=== PATIENT | male | born 1945 | race Caucasian/White ===

== ENCOUNTER → 2022-09-06 12:32 | Outpatient (BNVA) | payer MEDICARE, OTHER, SELFPAY | PROVIDERS: PCP Physician Assistant Medical; Visit Provider Dietitian, Registered | DX: R63.4 Abnormal weight loss (principal) | CPT/HCPCS: 97802 ==

== ENCOUNTER 2024-07-09 07:31 | Day surgery (SDC) | payer MEDICARE, OTHER, SELFPAY ==
[2024-07-04 12:25] VITALS: BMI 22.5
[2024-07-04 12:38] VITALS: BMI 22.5
--- NOTE | 2024-07-09 08:12 | HO.ANESPROP2 ---
HPI - Anesthesia Eval Consult details Narrative: cataract extraction PMF Active Problems Active Problems: All Active Problems Unintentional weight loss (Acute) Past Medical History Medical History Thyrotoxicosis Atrial fibrillation Asthma Cardiomyopathy Secondary malignant neoplasm of femoral lymph nodes Hx of malignant melanoma of skin Central sleep apnea Sick sinus syndrome Mitral valve regurgitation Hyperlipidemia Sensorineural hearing loss, bilateral Chronic rhinitis Benign essential HTN Cataracts, bilateral Family History Family history of problems with anesthesia: No Surgical History Surgical History Hx of colonoscopy History of Problems with Anesthesia: No Social History Social History Household Members: Spouse Housing: House Are you a primary career placement specialist to a significant other at home: No Do you presently have visiting nurse or other home services: No Patient Tobacco Use Status: Former Tobacco user Tobacco use type: Cigarette Smoked in Last 30 Days: No Use of substances other than those prescribed or required for medical reasons: No Are you DNR?: No Advance Directives: No Advance Directives Information Provided: Yes Advance Directives on File: No Recently lost weight without trying: No Poor oral hygiene: No Meds Allergies Allergy/AdvReac Type Severity Reaction Status Date / Time levofloxacin Allergy Unknown Verified 07/04/24 12:24 Active Medications: Current Medications Lactated Ringer's (Lr) 500 mls @ 20 mls/hr IVCONT .Q24H LONI Moxifloxacin HCl (Moxifloxacin Hcl 0.5 % Oph Sophie 3 Ml Drpbtl) 1 drop EYE-LEFT POSTOP ONE Stop: 07/09/24 07:59 Povidone Iodine (Povidone Iodine 5 % Ophth Soln 30 Ml Bottle) 1 appl EYE-LEFT PREOP PRN PRN Reason: Pre-Op Surgical Implant Prophy Home Medications ?Medication ?Instructions ?Recorded ?Confirmed ?Last Taken ?Type albuterol sulfate 90 mcg/actuation 2 puff inhalation Q6H PRN 07/04/24 07/04/24 Unknown History aerosol inhaler Shortness Of Breath Or Wheezing apixaban 5 mg tablet (Eliquis) 5 mg PO BID 07/04/24 07/04/24 Unknown History budesonide 180 mcg/actuation 2 inh inhalation BID 07/04/24 07/04/24 Unknown History breath activated powder inhaler (Pulmicort Flexhaler) cholecalciferol (vitamin D3) 50 50 mcg PO DAILY 07/04/24 07/04/24 Unknown History mcg (2,000 unit) capsule (Vitamin D3) fluticasone propionate 50 2 spray intranasal DAILY 07/04/24 07/04/24 Unknown History mcg/actuation nasal spray,suspension lisinopril 20 mg tablet 20 mg PO DAILY 07/04/24 07/04/24 Unknown History multivit,calc,mins-folic 240 1 tab PO DAILY 07/04/24 07/04/24 Unknown History mcg-vit K1 30 mcg-lycopene 300 mcg tablet (One-A-Day Men's Complete) Exam Height,Weight and Vital Signs: Height 6 ft 1 in Weight 77.2 kg Airway Mallampati Class: II TM Dist: >3cm Neck ROM: Limited Heart: rrr Lungs: cta Assessment and Plan Assessment Anesthesia Assessment: Anesthesia Plan Discussed Final Anesthetic Review Family History of Problems with Anesthesia: No History of Problems with Anesthesia: No NPO: Yes ASA Class: III Final Preanesthetic Review: No Changes in Pt Med Stat, Meds/Allgs Chart Reviewed, Consent Obtained/Reviewed and Anes Risks/Benef Reviewed Patient Risk: Intermediate Procedure Risk: Low Anesthetic Plan Anesthetic Plan: MAC: Disposition: Standard PACU
[2024-07-09 08:15] VITALS: BP 125/71; PULSE 37; RESP 18; TEMP 36.9; O2SAT 98
[2024-07-09] MEDS: Lactated Ringers 500 ML 20 ML IVCONT (08:22)
[2024-07-09] MEDS: Ketorolac Tromethamine 0.5% Op 5 ML DROPS 1 DROP EYE-LEFT ×3 (08:24→08:25)
[2024-07-09] MEDS: Tropicamide 1 % Ophth Sol 3 ML BTL 1 DROP EYE-LEFT ×3 (08:24→08:25)
[2024-07-09] MEDS: Phenylephrine HCL 2.5% Oph SoL 2 ML BOTTLE 1 DROP EYE-LEFT ×3 (08:24→08:25)
[2024-07-09] MEDS: Cyclopentolate 1 % Ophth Sol 2 ML DRPBTL 1 DROP EYE-LEFT ×3 (08:24→08:25)
[2024-07-09] MEDS: Tetracaine HCl/PF 0.5% Oph Sol 4 ML DROPS 1 DROP EYE-LEFT (08:26)
--- NOTE | 2024-07-09 08:41 | PC.NURSE ---
anesthesia aware pts pulse runs 30-40s no s/sx loww pulse pwd
--- NOTE | 2024-07-09 09:00 | MHC.SHP ---
Pre-Procedural Eval Section A - 24 Hr Update-Section A only Date of Service: 07/09/24 The patient is an INPATIENT: No Changes since office visit: No Cold of Flu in the past 2 weeks, No New Medical Problems, No Changes in Medication and No Patient answered all questions The patient has been examined within 24 hours of the surgical procedure. The History & Physical has been completed within 30 days and I have reviewed it.: Yes Section B - Complete if H&P > 30 days Chief Complaint: Age-related nuclear cataract, left eye Allergies: Allergies Allergy/AdvReac Type Severity Reaction Status Date / Time levofloxacin Allergy Unknown Verified 07/04/24 12:24 Plan Diagnosis/Plan: Unchanged I have reviewed the history and physical and performed a pertinent physical examination on my patient. No changes have occurred unless specified. Time Spent With Patient Time: Total time managing care of this patient today ____ minutes.
--- NOTE | 2024-07-09 09:01 | HO.PNOPHT ---
Ophthalmology Procedure Procedure Date of Service: 07/09/24 Ophthalmology Viscoelastic: Healon Duet Dual Pack Pro Ophthalmology Lenses: IOL Acrysof MP - [id number] (20) Procedure Notes: PREOPERATIVE DIAGNOSIS: Decreased visual acuity left eye secondary to cataract POSTOPERATIVE DIAGNOSIS: Same PROCEDURE: Left cataract extraction with intraocular lens insertion SURGEON: Anuj Lopez M.D. ANESTHESIA: Topical/MAC ESTIMATED BLOOD LOSS: None COMPLICATIONS: None After obtaining informed consent, the patient was brought to the operation room suite and placed in the supine position. After adequate sedation per anesthesia, topical drops of Tetracaine were given to the left eye. The eye was then prepped and draped in the usual sterile fashion. The operating room microscope was then positioned over the operative eye and a lid speculum placed. A paracentesis was created. Viscoelastic was then instilled into the anterior chamber. A three plane incision was then created temporally, utilizing a 2.85 mm keratome. Capsulotomy forceps were then utilized to create a circular tear capsulotomy. Hydrodissection and hydrodelineation were carried out until adequate mobilization of the nucleus occurred. Phacoemulsification was then utilized to remove the dense central nucleus followed by removal of the cortical material utilizing the automated aspiration irrigation unit. Viscoat elastic was instilled into the posterior capsular bag followed by placement of a posterior chamber intraocular lens without difficulty. The residual Viscoat elastic was then removed utilizing the automated IA machine. The wound was check and found to be watertight. The patient tolerated the procedure well and the lid speculum was removed. Intracameral injection of Vigamox 0.1 mL followed by a subtenon injection of Kenalog-40 0.2 mL were administered. The patient will be seen in the a.m.
[2024-07-09 09:24] VITALS: BP 109/52; PULSE 40; RESP 16; TEMP 36.8; O2SAT 98
== END 2024-07-09 09:39 | disposition home or self-care (01) ==
PROVIDERS: PCP Physician Assistant Medical; Visit Provider Ophthalmology
PROC: (CPT 66985; principal; 2024-07-09 09:30)
DX: H25.12 Age-related nuclear cataract, left eye (principal); H52.4 Presbyopia; H35.443 Age-related reticular degeneration of retina, bilateral; H18.413 Arcus senilis, bilateral; J45.909 Unspecified asthma, uncomplicated; I48.91 Unspecified atrial fibrillation; I10 Essential (primary) hypertension; I42.9 Cardiomyopathy, unspecified; E78.5 Hyperlipidemia, unspecified; G47.31 Primary central sleep apnea; Z85.820 Personal history of malignant melanoma of skin; Z79.51 Long term (current) use of inhaled steroids; Z79.01 Long term (current) use of anticoagulants; Z79.899 Other long term (current) drug therapy; Z88.8 Allergy status to other drugs, medicaments and biological substances; Z87.891 Personal history of nicotine dependence
CPT/HCPCS: 66984; J2250; J3301; V2630

== ENCOUNTER 2024-07-23 06:16 | Day surgery (SDC) | payer MEDICARE, OTHER, SELFPAY ==
[2024-07-04 12:42] VITALS: BMI 22.5
--- OUTSIDE RECORDS SUMMARY | 2024-07-11 17:47 | XMS_ITS ---
Author Organization [facility] Address [address] [place] [address] Phone Care Team Providers Care Division Toll Wire Chief Name Role Phone Fernando Lees Primary Care Provider [phone] Active Problems Problem Noted Date Diagnosed Date Benign essential hypertension 04/05/2024 Chronic rhinitis 04/05/2024 Sensorineural hearing loss, bilateral 04/05/2024 Hyperlipidemia 11/25/2020 Overview (03/01/2024): Hyperlipidemia Mitral valve regurgitation 11/25/2020 Overview (03/01/2024): Mitral valve regurgitation Sick sinus syndrome 11/25/2020 Overview (03/01/2024): Sick sinus syndrome Central sleep apnea with Usman-Burton respirati on 10/04/2018 Overview (03/01/2024): [facility] Home Sleep Apnea Test: Date 09/25/2018; Wt 175#; BMI 23; KELLEY 14, AI 6; HI 9; Unclassified apneas 0; Obstructive apneas 23; Central apneas 5; Mixed apneas 2; hypopneas 45; average oxygen saturation 94% (lowest 88% without saturations <88% for 5% or more of study) [facility] Polysomnogram treatment study. Date 11/04/2018. Wt 179#; BMI 24; SE 54 % SM 56 %; spent 11 % of the study in REM. On CPAP @ 12; RDI 0 (AHI 0), Central apneas 0; Obstructive apneas 0; Mixed apneas 0; hypopneas 0; RERAs 0; and, average oxygen saturation was 95%. For the entire study, PLMs ~14. - Complex Sleep Apnea with Central Apneas and Usman Burton Breathing- mild; mostly hypopneas, obstructive apneas and central apneas; without sleep related hypoventilation by 2019 home polysomnogram. - 11/04/2018 Pre-study ESS 4. 1/4 RLS symptoms. Last Assessment & Plan: Continue with the use of CPAP as indicated. Patient has excellent compliance. He feels great. Patient also has obstructive and central sleep apnea. Return to clinic in 1 year ?? - Complex Sleep Apnea with Central Apneas and Usman Burton Breathing- mild; mostly hypopneas, obstructive apneas and central apneas; without sleep related hypoventilation by 2019 home polysomnogram. - 11/04/2018 Pre-study ESS 4. 1/4 RLS symptoms. - 03/2018 Echo EF 40% - Afib by his report in the past. + cardiomyopathy with EF 40%. Malignant melanoma of skin of trunk 02/05/2016 Secondary malignant neoplasm of femoral lymph no richelle 02/05/2016 Allergy 06/05/2010 Cardiomyopathy 02/06/2009 Overview (03/01/2024): Mild left ventricular dysfunction by echocardiogram. Frequent PVCs and chronic atrial fibrillation. Very active with no limiting symptoms. Followed by Dr. Kahn Last Assessment & Plan: Dilated nonischemic cardiomyopathy of unclear etiology. LVEF has been stable in the past and is showing no signs or symptoms of heart failure. I will get an echocardiogram to see if he requires guideline directed medical therapy. If his LVEF is above 40% with a lack of symptoms and clinical stability then I will continue with minimal pharmacologic treatment. If his LVEF is 40 or below I will talk to him about starting afterload reduction. He would not be a candidate for beta-janes due to his rhythm. Asthma 01/26/2006 Geniculate herpes zoster 01/26/2006 Atrial fibrillation 01/04/2006 Overview (03/01/2024): Longstanding persistent atrial fibrillation. Continue with apixaban. Discussed alternatives given he has some mild he has a high vagal tone and has not needed rate slowing medications. He denies any symptoms. He is tolerating Eliquis without bleeding. He has normal baseline renal function. Last Assessment & Plan: This gentleman has a bradycardic response to atrial fibrillation but is asymptomatic and exercising fairly vigorously without difficulty. 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 If his LVEF is reduced I would consider a left bundle pacemaker or defibrillator depending on the LVEF. He will continue to avoid any rate slowing medications and continue his healthy lifestyle. We will continue Eliquis for stroke prevention. I did discuss left atrial appendage closure with him but he is doing reasonably well on the Eliquis Thyrotoxicosis 01/04/2006 Current Oncology Plans No current plan information found. Past Plans No past plan information found. Radiation Treatments * No radiation treatments are documented for this patient in [facility]. Treatments may have been administered in another system. Lifetime Dose Tracking * Chemical Lifetime Dose Automatic Entry Manual Entr y Fluoro Time 1 minutes 1 minutes 0 minutes Air Kerma 3.8 mGy 3.8 mGy 0 mGy CTDIvol 10.35 mGy 10.35 mGy 0 mGy Dose Area Product 0.5 mGy-cm2 0.5 mGy-cm2 0 mGy-cm2
--- OUTSIDE RECORDS SUMMARY | 2024-07-11 17:48 | XMS_ITS | Encounter Summary ---
Author Organization [employer] Address [address] [place] [address] Care Team Providers Care Repairer Shoe Sticks Name Role Phone Fernando Lees Primary Care Provider [phone] Reason for Visit * Reason Comments Pre-op Exam Encounter Details Date Type Department Care Team (Late st Contact Info) Description 07/02/2024 10:00 AM EST Consult Adult Medicine [facility] [address] [place] [phone] Fernando Lees PA [address], [place] [id number] Pre-op exam (Primary Dx); Atrial fibrillation, unspecified type (CMS/HCC); Cardiomyopathy, unspecified type (CMS/HCC); Hyperlipidemia, unspecified hyperlipidemia type; Mitral valve insufficiency, unspecified etiology Social History Tobacco Use Types Packs/Day Years Used Date Smoking Tobacco: Former Cigarettes Q uit: 12/14/1965 Smokeless Tobacco: Never Tobacco Cessation:Counseling Given: Not Answered Alcohol Use Standard Drinks/Week Comments Yes 0 (1 standard drink = 0.6 oz pur e alcohol) Housing Instability Answer Date Recorde d Are you worried that in the next 2 months you may not have stable housing? No 04/13/2024 Food Access & Nutrition Answer Date Rec orded Do you have access to a vari ety of food including fruits and vegetables? Yes 04/13/2024 Access to Healthcare Answer Date Record ed Within the last 3 months, ho w many times did you visit the emergency department for your medical care? 0 04/13/2024 Health Literacy Answer Date Recorded How often do you need to hav e someone help you when you read instructions, pamphlets, or other written material from your doctor or pharmacy? Never 04/13/2024 Caregiver: How often do you need to have someone help you when you read instructions, pamphlets, or other written material from your doctor or pharmacy? Not on file 04/13/2024 Financial Risk Answer Date Recorded How hard is it for you to pa y for the very basics like food, housing, medical care, and air conditioning / heating? Not very hard 04/13/2024 Transportation Answer Date Recorded Has the lack of transportati on kept you from meetings, work, or from getting things needed for daily living? No Has the lack of transportati on kept you from medical appointments or from getting medications? No 04/13/2024 Social Isolation Answer Date Recorded How often do you feel lonely or isolated from th ose around you? Never 04/13/2024 Food Risk Answer Date Recorded Within the past 12 months we worried whether our food would run out before we got money to buy more. Never true 04/13/2024 Within the past 12 months th e food we bought just didn't last and we didn't have money to get more. Never true 04/13/2024 Dependent Care Answer Date Recorded Do you need help finding or paying for care for your loved ones. For example, early childhood or elderly care for an older adult? No 04/13/2024 Education Answer Date Recorded Do you think completing more education or training, like finishing a GED, going to college, or learning a trade, would be helpful for you? No 04/13/2024 Employment and Income Answer Date Recor ded During the last four weeks, have you been actively looking for work? No 04/13/2024 Living Situation Answer Date Recorded What is your living situation? 1 06/13/2023 Sex and Gender Information Value Date Recorded Sex Assigned at Not on file Legal Sex Male 6:24 AM EST Gender Identity Not on file Sexual Orientation Not on file documented as of this encounter Last Filed Vital Signs Vital Sign Reading Time Taken Comments Blood Pressure 90/60 07/02/2024 10:01 AM EST Pulse 40 07/02/2024 10:01 AM EST provider will be recheck Temperature 36.4 ??C (97.5 ??F) 07/02/2024 1 0:01 AM EST Respiratory Rate 18 07/02/2024 10:0 1 AM EST Oxygen Saturation 98% 07/02/2024 10: 01 AM EST Inhaled Oxygen Concentration - - Weight 77.2 kg (170 lb 3.2 oz) 07/02/2024 10:01 AM EST Height 185.4 cm (6' 1 ) 07/02/2024 10:0 1 AM EST Body Mass Index 22.46 07/02/2024 10:01 AM EST documented in this encounter Progress Notes * Fernando Lees, DANIELLE - 07/02/2024 10:00 AM EST Referring MD: Anuj Lopez MD HPI: Mr. Larsen is a 78 y.o. year old male who is scheduled for bilateral cataract surgery has the leftside scheduled for 07/09/2024 and the right scheduled for 07/23/2024. He is here today for pre-operative consultation. His functional status is greater than 4 METs as he can walk up 2 flights of stairs. He exercises regularly. He has not had problems with anesthesia or bleeding. ROS: GENERAL: Negative for malaise, significant weight loss and fever RESPIRATORY: No cough, wheezing or shortness of breath CARDIOVASCULAR: Negative for chest pain, leg swelling and palpitations ENDOCRINE: Negative for cold or heat intolerance, polyuria, polydipsia and goiter NEURO: No persistent headache, fainting, seizures, strokes, TIAs, weakness, numbness or tingling PAST MEDICAL HISTORY: Patient Active Problem List Diagnosis Date Noted Benign essential hypertension 04/05/2024 Chronic rhinitis 04/05/2024 Sensorineural hearing loss, bilateral 04/05/2024 Hyperlipidemia 11/25/2020 Mitral valve regurgitation 11/25/2020 Sick sinus syndrome (CMS/HCC) 11/25/2020 Central sleep apnea with Usman-Burton respiration 10/04/2018 Malignant melanoma of skin of trunk (CMS/HCC) 02/05/2016 Secondary malignant neoplasm of femoral lymph nodes [place] 02/05/2016 Allergy 06/05/2010 Cardiomyopathy ([facility]) 02/06/2009 Asthma 01/26/2006 Geniculate herpes zoster 01/26/2006 Atrial fibrillation ([facility]) 01/04/2006 Thyrotoxicosis 01/04/2006 SOCIAL HISTORY: Social History Tobacco Use Smoking status: Former Current packs/day: 0.00 Types: Cigarettes Quit date: 12/14/1965 Years since quittin.5 Smokeless tobacco: Never Substance Use Topics Alcohol use: Yes FAMILY HISTORY: Family Status Relation Name Status Mother at age 87 congestive heart failure Uncle Father arthritis Brother suicide No partnership data on file Family History Problem Relation Name Age of Onset Heart failure Mother Colon cancer Uncle 65.00 ACTIVE MEDICATIONS: Outpatient Medications Marked as Taking for the 07/02/24 encounter (Consult) with DANIELLE Ferreira Medication Sig Dispense Refill albuterol HFA (PROAIR HFA ; PROVENTIL HFA ; VENTOLIN HFA) 90 mcg/actuation inhaler Inhale 2 puffs by mouth every 6 (six) hours if needed for wheezing or shortness of breath. 3 each 3 apixaban (Eliquis) 5 mg tablet TAKE 1 TABLET BY MOUTH TWICE DAILY 180 tablet 3 budesonide (Pulmicort Flexhaler) 180 mcg/actuation inhaler Inhale 1 puff by mouth 2 (two) times a day. Rinse mouth with water after use to reduce aftertaste and incidence of candidiasis. Do not swallow. 1 each 12 cholecalciferol (VITAMIN D-3) 50 mcg (2,000 unit) capsule Take 1 capsule (2,000 Units total) by mouth 1 (one) time each day. fluticasone propionate (FLONASE) 50 mcg/actuation nasal spray 2 sprays in each nostril once per dayfor 2 weeks. lisinopriL (PRINIVIL,ZESTRIL) 20 mg tablet Take 1 tablet (20 mg total) by mouth 1 (one) time each day. 90 tablet 1 multivit-minerals/FA/lycopene (ONE-A-DAY MEN'S 50 PLUS ORAL) 1 tab qd UNABLE TO FIND CPAP Historical (HISTORICAL CPAP) ALLERGIES: Levofloxacin PHYSICAL EXAM: Blood pressure 90/60, pulse (!) 40, temperature 36.4 ??C (97.5 ??F), temperature source Temporal, resp. rate 18, height 1.854 m (73 ), weight 77.2 kg (170 lb 3.2 oz), SpO2 98%. Body mass index is 22.46 kg/m??. APPEARANCE: Alert and in no acute distress HEART: Sinus bradycardia with normal S1 and S2, no murmurs, no gallops, no JVD appreciated LUNG: clear to auscultation bilaterally EXTREMITIES: Extremities warm and well perfused without clubbing, cyanosis, or edema NEURO: Awake, alert and oriented x 3 and reflexes symmetrical LABS: No results found for: WBC , HGB , HCT , MCV No results found for: NA , K , CO2 , CL , BUN , GLU No results found for: INR , PTT Testing:acceptable EKG: Atrial fibrillation rate around 40 no ischemic changes . ASSESSMENT AND PLAN: 1. Pre-op exam 2. Atrial fibrillation, unspecified type (CMS/HCC) 3. Cardiomyopathy, unspecified type (CMS/HCC) 4. Hyperlipidemia, unspecified hyperlipidemia type 5. Mitral valve insufficiency, unspecified etiology Cardiac - Mr. Larsen clinical risk factors include atrial fibrillation, cardiomyopathy and male isscheduled for a low risk procedure. His functional capacity is estimated to be greater than 4 METs.He is, therefore, estimated to have an acceptablerisk for the proposed procedure. Further cardiac workup is not warranted. Beta blockade perioperatively is not needed. Patient does have a relatively low heart rate which is chronic. It does not seem to be symptomatic at all. He has monitored by cardiology. Overall he is very stable from a cardiovascular perspective Pulmonary - His pulmonary risk factors include age > 50. Early ambulation and use of incentive spirometry, when appropriate, are encouraged. Medications -patient may continue his medications perioperatively with a small sip of water. He checked in with cardiology and they feel that he may continue the Eliquis perioperatively and I agree with this sentiment as the risk for bleeding is very low. Please do not hesitate to contact me with any questions or concerns. Thank you for the courtesy of this consultation. DANIELLE Mccann on 07/02/2024 at 10:29 AM EST cc: Anuj Lopez MD documented in this encounter Plan of Treatment Upcoming Encounters Date Type Department Care Team (Late st Contact Info) Description 07/18/2024 2:15 PM EST Office Visit [address] [phone] Veronica Romero MD [address] [place] [address] 08/08/2024 12:30 PM EDT Ancillary Procedure Pulmonolgy - [place] [address] [phone] MaxwellFatmata galindonasima 08/08/2024 1:30 PM EDT [facility] [address] [phone] Norma Santa MD [address] [address] 10/22/2024 12:45 PM EDT Office Visit Adult Medicine [facility] [address] [place] [address] Fernando Lees PA [address] [place] [address] documented as of this encounter Procedures Procedure Name Priority Date/Time Associated Diagnosis Comments ECG 12-LEAD TRACING ONLY Routine 07/02/2024 10:36 AM EST Pre-op exam documented in this encounter Results * ECG 12 lead Tracing Only (07/02/2024 10:36 AM EST) Fernando SANTOS ECG ORDERABLES Final Res ult documented in this encounter Visit Diagnoses Diagnosis Pre-op exam- Primary Atrial fibrillation, unspecified type (CMS/HCC) Cardiomyopathy, unspecified type (CMS/HCC) Hyperlipidemia, unspecified hyperlipidemia type Mitral valve insufficiency, unspecified etiology documented in this encounter Additional Health Concerns Assessment Noted Time PHQ-9 Depression Total Score: 0 04/13/20 24 11:23 PM EST documented as of this encounter Care Teams Repairer Shoe Sticks Relationship Specialty Start Date End Date Fernando Lees PA [address] [place] [address] PCP - General Internal Medicine 09/10/20 documented as of this encounter
--- OUTSIDE RECORDS SUMMARY | 2024-07-11 17:48 | XMS_ITS | Continuity of Care Document ---
Author Name [facility] Organization [facility] Care Team Providers Care Bill Sorter Name Role Phone 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 It does not include entries that were removed or entered in error. 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 Medication Details Route Status Patient Instructions Prescription Expires Prescription Number Last Dispense Date Ordering Provider Order Date Order Qty Source AMOXICILLIN (AMOXICILLI N), 500 MG, TABLET, ORAL, [facility], 100 ea. BOTTLE Active [id number] 2023 28 Pharmac y Data Transac tion Service Facilit y AMOXICILLIN (AMOXICILLI N), 500 MG, TABLET, ORAL, [facility], 100 ea. BOTTLE Active [id number] 2023 28 Pharmac y Data Transac tion Service Facilit y ELIQUIS (APIXABAN), 5 MG, TABLET, ORAL, [facility] , 60 ea. BOTTLE Active [id number] 2023 180 Pharmac y Data Transac tion Service Facilit y ELIQUIS (APIXABAN), 5 MG, TABLET, ORAL, [facility] , 60 ea. BOTTLE Active [id number] 4 2023 180 Pharmac y Data Transac tion Service Facilit y IBUPROFEN (ibuprofen) , 800 MG, TABLET, ORAL, AUROB[facility]ARM, 500 ea. BOTTLE Active [id number] 2023 21 Pharmac y Data Transac tion Service Facilit y PULMICORT FLEXHALER (BUDESONIDE ), 180MCG, AER POW BA, INHALATION, ASTRAZENECA , 1 ea. CANISTER Active [id number] 2022 3 Pharmac y Data Transac tion Service Facilit y PULMICORT FLEXHALER (BUDESONIDE ), 180MCG, AER POW BA, INHALATION, ASTRAZENECA , 1 ea. CANISTER Active [id number] 4 2023 3 Pharmac y Data Transac tion Service Facilit y SULFAMETHOX AZOLE-TRIME THOPRIM (SULFAMETHO XAZOLE/TRIM ETHOPRIM), 800-160MG, TABLET, ORAL, AUROBINDO PHARM, 500 ea. BOTTLE Active [id number] 2023 28 Pharmac y Data Transac tion Service Facilit y Allergies, Adverse Reactions, Alerts Combined list of allergies from Department of Defense and Veterans Affairs facilities. It does not include entries that were removed or entered in error. Substance Category Reaction Severity Reaction type Status Date Reported Comments Source No Known Allergies Drug allergy (disorder) active 04/20/2012 [facility] Immunizations Combined list of available immunizations from the Department of Defense and Veterans Affairs facilities. Immunization Series Date Given Administered By Site Reaction Lot Number CVX Code Drug Line Walker Status Comments Source influenza virus vaccine, whole virus 1 2002 Unknown, Provider [id number] [facility] ([facility]) complet ed influenza virus vaccine, whole virus [facility] influenza virus vaccine, whole virus 1 2001 Unknown, Provider [id number] Felix ([facility]) complet ed influenza virus vaccine, whole virus [facility] typhoid Vi capsular polysaccharid e vaccine 1 2001 Unknown, Provider [id number] Sanofi Pasteur ([facility]) complet ed typhoid Vi capsular polysacch aride vaccine DoD yellow fever vaccine 1 2000 Unknown, Provider [id number] Sanofi Pasteur ([facility]) complet ed yellow fever vaccine DoD influenza virus vaccine, whole virus 1 2000 Unknown, Provider [id number] Sanofi Pasteur ([facility]) complet ed influenza virus vaccine, whole virus [facility] tuberculin skin test; purified protein derivative solution, intradermal 1 2000 Unknown, Provider [id number] Sanofi Pasteur ([facility]) complet ed tuberculi n skin test; purified protein derivativ e solution, intraderm al DoD tuberculin skin test; purified protein derivative solution, intradermal 1 1999 Unknown, Provider [id number] Sammy ([facility]) complet ed tuberculi n skin test; purified protein derivativ e solution, intraderm al DoD tuberculin skin test; purified protein derivative solution, intradermal 1 1999 Unknown, Provider 96 () complet ed tuberculi n skin test; purified protein derivativ e solution, intraderm al DoD anthrax vaccine 3 1999 Unknown, Provider [address] [facility] [employer] [place] ([facility]) complet ed anthrax vaccine DoD anthrax vaccine 2 1999 Unknown, Provider [id number] [facility] [employer] [place] ([facility]) complet ed anthrax vaccine DoD anthrax vaccine 1 1999 Unknown, Provider [id number] [facility] [facility] [place] ([facility]) complet ed anthrax vaccine DoD hepatitis A vaccine, adult dosage 2 1999 Unknown, Provider 52 () complet ed hepatitis A vaccine, adult dosage DoD meningococcal polysaccharid e vaccine (MPSV4) 1 1999 Unknown, Provider 32 () complet ed meningoco ccal polysacch aride vaccine (MPSV4) DoD tuberculin skin test; purified protein derivative solution, intradermal 1 1999 Unknown, Provider [id number] Sammy ([facility]) complet ed tuberculi n skin test; purified protein derivativ e solution, intraderm al DoD tetanus and diphtheria toxoids, adsorbed, preservative free, for adult use (2 Lf of tetanus toxoid and 2 Lf of diphtheria toxoid) 1 1999 Unknown, Provider 09 () complet ed tetanus and diphtheri a toxoids, adsorbed, preservat gifty free, for adult use (2 Lf of tetanus toxoid and 2 Lf of diphtheri a toxoid) DoD typhoid vaccine, parenteral, other than acetone-kille d, dried 1 1998 Unknown, Provider 41 () complet ed typhoid vaccine, parentera l, other than acetone-k illed, dried DoD influenza virus vaccine, whole virus 1 1998 Unknown, Provider [id number] Felix ([facility]) complet ed influenza virus vaccine, whole virus [facility] hepatitis A vaccine, adult dosage 1 1998 Unknown, Provider [id number] Merck ([facility]) complet ed hepatitis A vaccine, adult dosage DoD influenza virus vaccine, whole virus 2 1997 Unknown, Provider [id number] Sanofi Pasteur ([facility]) complet ed influenza virus vaccine, whole virus DoD influenza virus vaccine, whole virus 1 1996 Unknown, Provider 16 () complet ed influenza virus vaccine, whole virus [facility] typhoid vaccine, parenteral, acetone-kille d, dried ([place] ) 2 1995 Unknown, Provider 53 () complet ed typhoid vaccine, parentera l, acetone-k illed, dried ([place] ) DoD yellow fever vaccine 1 1989 Unknown, Provider 37 () complet ed yellow fever vaccine [facility] trivalent poliovirus vaccine, live, oral 1 1989 Unknown, Provider 02 () complet ed trivalent polioviru s vaccine, live, oral [facility] tetanus and diphtheria toxoids, adsorbed, preservative free, for adult use (2 Lf of tetanus toxoid and 2 Lf of diphtheria toxoid) 1 1988 Unknown, Provider 09 () complet ed tetanus and diphtheri a toxoids, adsorbed, preservat gifty free, for adult use (2 Lf of tetanus toxoid and 2 Lf of diphtheri a toxoid) [facility] trivalent poliovirus vaccine, live, oral 1 1963 Unknown, Provider 02 () complet ed trivalent polioviru s vaccine, live, oral [facility]D Encounters Combined list of: 1) Encounters from Department of Veterans Affairs facilities going backup to the last 18 months, not all [facility] inpatient encounters are included; 2) Encounters from the Department of Defense facilities going backup to 280 months. Location Location Details Encounter Type Encounter Number Reason For Visit Attending Provider ADM Date DC Date Status Disposition Source [facility](NI Fam Med PCM Tm 1) OUTPATIENT [id number] COLD LIKE SYMPTOM S/SORE THROAT/ HOARSE VOICE ALTHEA OSBORNE 04/18 Released w/o Limitations [facility](N I Fam Med PCM Tm 1) [facility] F[facility] Med [facility] Tm 1) OUTPATIENT [id number] f/u for lab result ALTHEA OSBORNE 04/20 Released w/o Limitations [facility](N I Fam Med [facility] Tm 1) [facility] HEARING AID FITTING/CH ECKING [id number] Diagnos is: ICD-10- CM Z46.1 Encount er for fitting and adjustm ent of hearing aid [facility]IOR[facility]O 10/26 [facility] Social History Combined list of available smoking, tobacco, and other social history from Department of Defense and Veterans Affairs facilities. Social History Type Response Date Comment [facility] e This section is an empty social history section. DoD
--- OUTSIDE RECORDS SUMMARY | 2024-07-11 17:48 | XMS_ITS | Clinical Summary ---
Author Organization [facility] Address [address] [place] [address] Phone Care Team Providers Care Assortment Planner Name Role Phone Fernando Lees Primary Care Provider [phone] Allergies Active Allergy Reactions Criticality Noted Date Comments Levofloxacin 07/13/2023 Medications cholecalciferol (VITAMIN D-3) 50 mcg (2,000 unit) capsule Take 1 capsule (2,000 Units total) by mouth 1 (one) time each day. Active fluticasone propionate (FLONASE) 50 mcg/actuation nasal spray 2 sprays in each nostril once per day for 2 weeks. 10/07/19 22 Active UNABLE TO FIND CPAP Historical (HISTORICAL CPAP) 10/07/19 22 Active budesonide (Pulmicort Flexhaler) 180 mcg/actuation inhaler INHALE 2 PUFFS BY MOUTH INTO THE LUNGS TWICE DAILY 08/22/19 21 Active multivit-minera ls/FA/lycopene (ONE-A-DAY MEN'S 50 PLUS ORAL) 1 tab qd Active budesonide (Pulmicort Flexhaler) 180 mcg/actuation inhalerIndicati ons:Moderate persistent asthma, unspecified whether complicated Inhale 1 puff by mouth 2 (two) times a day. Rinse mouth with water after use to reduce aftertaste and incidence of candidiasis. Do not swallow. 1 each 12 04/05/20 24 025 Active albuterol HFA (PROAIR HFA ; PROVENTIL HFA ; VENTOLIN HFA) 90 mcg/actuation inhalerIndicati ons:Moderate persistent asthma, unspecified whether complicated Inhale 2 puffs by mouth every 6 (six) hours if needed for wheezing or shortness of breath. 3 each 3 04/05/20 24 025 Active lisinopriL (PRINIVIL,ZESTR IL) 20 mg tablet Take 1 tablet (20 mg total) by mouth 1 (one) time each day. 90 tablet 1 04/05/20 24 Active apixaban (Eliquis) 5 mg tablet TAKE 1 TABLET BY MOUTH TWICE DAILY 180 tablet 3 06/22/19 25 Active apixaban (Eliquis) 5 mg tablet Take 1 tablet (5 mg total) by mouth 2 (two) times a day. 12/26/19 24 025 Discontinued Active Problems Problem Noted Date Diagnosed Date Benign essential hypertension 04/05/2024 Chronic rhinitis 04/05/2024 Sensorineural hearing loss, bilateral 04/05/2024 Hyperlipidemia 11/25/2020 Overview (03/01/2024): Hyperlipidemia Mitral valve regurgitation 11/25/2020 Overview (03/01/2024): Mitral valve regurgitation Sick sinus syndrome 11/25/2020 Overview (03/01/2024): Sick sinus syndrome Central sleep apnea with Usman-Burton respirati on 10/04/2018 Overview (03/01/2024): [facility] Home Sleep Apnea Test: Date 09/25/2018; Wt 175#; BMI 23; KELLEY 14, AI 6; HI 9; Unclassified apneas 0; Obstructive apneas 23; Central apneas 5; Mixed apneas 2; hypopneas 45; average oxygen saturation 94% (lowest 88% without saturations <88% for 5% or more of study) [facility] Polysomnogram treatment study. Date 11/04/2018. Wt 179#; [...] central apneas; without sleep related hypoventilation by 2018 home polysomnogram. - 11/04/2018 Pre-study ESS 4. [...] reasonably well on the Eliquis Thyrotoxicosis 01/04/2006 Encounters Date Type Department Care Team Description 07/02/2024 10:00 AM EST Consult Adult Medicine [address] [phone] Fernando Lees PA Pre-op exam (Primary Dx); Atrial fibrillation, unspecified type (CMS/HCC); Cardiomyopathy, unspecified type (CMS/HCC); Hyperlipidemia, unspecified hyperlipidemia type; Mitral valve insufficiency, unspecified etiology 06/28/2024 Telephone [facility] [address] [facility] [address] [place] [phone] Terry Kahn MD hold Eliquis 05/29/2024 11:15 AM EST Office Visit Pulmonolgy - [place] 175 [facility] [address] [place] [phone] Norma Santa MD Lung nodules (Primary Dx); KRISTY on CPAP; Mild persistent asthma, unspecified whether complicated; Ex-smoker; Abnormal chest CT 05/24/2024 9:35 AM EST - 05/24/2024 11:59 PM EST Hospital Encounter [facility] Xray [address] [place] [phone] Oropharyngeal dysphagia Discharge Disposition: Home or Self Care 05/21/2024 9:23 AM EST - 05/21/2024 11:59 PM EST Hospital Encounter CT Scan - [place] [address] [place], [place] [phone] Lung nodules Discharge Disposition: Home or Self Care 04/17/2024 12:45 PM EST Office Visit [facility] - [place] [address] [place] [address] Fernando Lees PA Benign essential hypertension (Primary Dx); Cardiomyopathy, unspecified type (CMS/HCC); Atrial fibrillation, unspecified type (CMS/HCC); Central sleep apnea with Usman-Burton respiration; Asthma, unspecified asthma severity, unspecified whether complicated, unspecified whether persistent; Hyperlipidemia, unspecified hyperlipidemia type; Mitral valve insufficiency, unspecified etiology; 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); Sick sinus syndrome (CMS/HCC) from Last 3 Months Immunizations Name Administration Dates Next Due Anthrax 10/17/1999,10/03/1999,09/19/1999 Hepatitis A Adult (Havrix; V aqta) 19yo and older 09/19/1999,03/21/1999 Influenza Quadravalent, 0.5m l (Fluad) 65yo and older 03/19/2023 Influenza Quadravalent, 0.5m l (Fluzone High-dose) 65yo and older 03/24/2022,03/17/2020 Influenza Quadravalent, MDCK , 0.5ml, with preservative (Flucelvax) 6mo and older 03/19/2023,03/17/2017 Influenza Whole 02/14/2003, 2,02/25/2001,03/21,03/22/1998,03/16/1997 Influenza trivalent, 0.5mL ( Fluad) 65yo and older 03/24/2022,03/13/2021,03/17/2020,03/12,03/03/2018,03/27/2016,02/12/2015 Influenza trivalent, 0.5mL ( Fluzone High-dose) 65yo and older 03/17/2024,03/13/2021,03/12/2019,03/03,03/27/2016,02/12/2015 Influenza trivalent, with pr eservative (Fluzone; Afluria) 6mo and older 02/28/2013 Influenza, Unspecified 03/14/2019,03/06/2016, Meningococcal Polysaccharide 08/23/1999 Moderna SARS-CoV-2 COVID-19, mRNA, LNP-S, preservative free 10/30/2022 OPV 07/01/1989,04/15/1964 PPD Test 02/25/2001, 0,01/09/2000,08/22 Pfizer (ages 12 & older) Biv alent, COVID-19 10/30/2022,02/23/2022 Pneumococcal conjugate 13 va lent (Prevnar 13, PCV13) 2mo and older 09/16/2014 Pneumococcal polysaccharide 23 valent (Pneumovax 23) 2yo and older 07/19/2012 RSV, bivalent, protein subun it RSVpreF, 0.5mL, Preservative Free (Arexvy) 60yo and older 02/27/2023 Td Tetanus diptheria (Tdvax) 7yo and older 11/03/2018,05/23/1999,01/14/1989 Tdap Tetanus diptheria acell ular pertussis (Boostrix; Adacel) 7yo and older 11/28/2008 Typhoid VICPS (Typhim Vi) 2y o and older 07/22/2001 Typhoid Vaccine, Parental, Acetone-Killed, Dried (U.S. ) 12/15/1995 Typhoid Vaccine, Parenteral, Other Than Acetone-killed, Dried 04/18/1999 Yellow Fever (YF-VAX) 9mo and older 03/18/2001,1 06/16/1989 Zoster Live 06/05/2010 Zoster recombinant (Shingrix ) 19yo and older 02/10/2019,11/14/2018 Surgical History Surgery Date Site/Laterality Comments TONSILLECTOMY PROCEDURE: HISTORICAL TONSILLECTOMY COLONOSCOPY PROCEDURE: HISTORICAL COLONOSCOPY; COMMENT: dr parrish 2008 and 2013 and December 2018 OTHER SURGICAL HISTORY PROCEDURE: HISTORICAL MELANOMA COLONOSCOPY 01/12/2024 PROCEDURE: HISTORICAL COLONOSCOPY; COMMENT: francois 1 polyp 3 yrs OTHER SURGICAL HISTORY 01/12/2024 PROCEDURE: OUTSIDE ENDOSCOPY; COMMENT: francois normal Medical History Medical History Date Comments Atrial fibrillation (CMS/HCC) DX :Atrial fibrillation (HCC) Atrial fibrillation ([facility]/HCC) 01/04/2006 DX :Atrial fibrillation (HCC) Thyrotoxicosis without menti on of goiter or other cause, without mention of thyrotoxic crisis or storm 01/04/2006 DX:Thyrotoxicosis withou t mention of goiter or other cause, without mention of thyrotoxic crisis or storm Geniculate herpes zoster 01/26/2006 DX:Tyra culate herpes zoster Unspecified asthma(493.90) 01/26/2006 DX:Un specified asthma(493.90) Personal history of colonic polyps 08/22/2008 DX:Personal history of colonic polyps; COMMENT: Colonosopy Done in [address] parrish Cardiomyopathy ([facility]) 02/06/2009 DX:Card iomyopathy ([facility]) Historical Medical DX 06/05/2010 DX:Allergy Malignant melanoma ([facility]) 01/12/2016 DX: Malignant melanoma ([facility]) Family History Medical History Relation Name Comments Heart failure Mother Colon cancer Uncle Relation Name Status Comments Brother suicide Father arthritis Mother (Age 87) congestive heart failure Uncle Social History Tobacco Use Types Packs/Day Years [...] on file Sexual Orientation Not on file Obstetrics History Last Filed Vital Signs Vital Sign Reading [...] Mass Index 22.46 07/02/2024 10:01 AM EST Plan of Treatment Upcoming Encounters Date Type Department Care Team (Late st Contact Info) Description 07/18/2024 2:15 PM EST Office Visit Endocrinology [facility] [address] [place] [phone] Veronica Romero MD [address] [place] [phone] 08/08/2024 12:30 PM EDT Ancillary Procedure Pulmonolgy - [place] [address] [phone] Aurelio Maxwell 08/08/2024 1:30 PM EDT Office Visit Pulmonolgy [address] [phone] Norma Santa MD [address] [address] 10/22/2024 12:45 PM EDT Office Visit Adult Medicine [facility] [address] [place] [phone] Fernando Lees PA [address] [place], [place] [phone] Health Maintenance Due Date Last Done Comments IPV Vaccines (3 of 3 - Adult catch-up series) 12/29/1989 07/01/1989, 04/15/1964 Medicare Annual Wellness Visit 04/24/2022 Hypertension/CHF/CAD Annual BMP Blood Test 10/10/2024 10/11/2023, 10/11/2023 Depression Screening 04/13/2025 04/13/2024, 10/11/19 24 Social Influencers of Health Screening 04/13/2025 04/13/2024 Falls Risk Assessment 04/17/2025 04/17/2024, 023 Cholesterol Screening (Lipid Panel) 10/10/2028 10/11/2023, 10/11/2023 DTaP,Tdap,and Td Vaccines (5 - Td or Tdap) 11/03/2028 11/03/2018, 11/28/2008, 05/23/1999, Additional history exists Meningococcal ACWY Vaccine Aged Out 08/23/1999 N o longer eligible based on patient's age to complete this topic Hepatitis A Vaccines Aged Out 09/19/1999, 03/21/19 99 No longer eligible based on patient's age to complete this topic Pneumococcal Vaccine: 50+ Years Completed 09/16/2014, 07/19/2012 Hepatitis C Screening Completed 09/30/2014 Zoster Vaccines Completed 02/10/2019, 0706/2018, 06/05/2010 RSV Immunization Patients 60+ Years Old Completed 02/27/2023 COVID-19 Vaccine Completed 01/17/2024, , 04/02/2023, Additional history exists Influenza Vaccine Completed 03/17/2024, , 03/19/2023, Additional history exists HIB Vaccines Aged Out No longer eligi ble based on patient's age to complete this topic HPV Vaccines Aged Out No longer eligi ble based on patient's age to complete this topic Hepatitis B Vaccines Aged Out No long er eligible based on patient's age to complete this topic MMR Vaccines Aged Out No longer eligi ble based on patient's age to complete this topic Meningococcal B Vacine Aged Out No lo nger eligible based on patient's age to complete this topic RSV Immunization Patients Under 20 months Aged Out No longer eligible based on patient's age to complete this topic Varicella Vaccines Aged Out No longer eligible based on patient's age to complete this topic Procedures Procedure Name Priority Date/Time Associated Diagnosis Comments ECG 12-LEAD TRACING ONLY Routine 07/02/2024 10:36 AM EST Pre-op exam XR BARIUM SWALLOW WITH VIDEO AND SPEECH Routine 05/24/2024 9:58 AM EST Oropharyngeal dysphagia CT CHEST WO CONTRAST Routine 05/21/2024 9:31 AM EST Lung nodules DEPRESSION SCREENING Routine 10/11/2023 ANNUAL BMP BLOOD TEST Routine 10/11/2023 LIPID PANEL Routine 10/11/2023 FALLS RISK ASSESSMENT Routine 04/12/2023 HEPATITIS C SCREENING Routine 09/30/2014 from Last 3 Months or Most Recently Relevant to Health Maintenance Results * ECG 12 lead Tracing Only (07/02/2024 10:36 AM EST) us Fernando SANTOS ECG ORDERABLES Final Res ult * XR Barium Swallow with Video and Speech (05/24/2024 9:58 AM EST) Anatomical Region Laterality Modality Head and Neck Radiographic Echo ging 05/24/2024 12:1 2 PM EST Impressions 05/24/2024 12:19 PM EST Flash laryngeal penetration with moderate amounts of vallecular residue noted on multiple consistencies as described above without evidence of alphonso aspiration. Please refer to the dedicated speech pathologist report for further details as clinically indicated. -------- FINAL REPORT -------- Dictated By: Jeanne Puente Dictated Date: 05/24/2024 12:12 ET Assigned Physician: Yoan Duarte Reviewed and Electronically Signed By: Yoan Duarte Signed Date: 05/24/2024 12:19 ET Workstation ID: [id number] Transcribed By: Self Edit Transcribed Date: 05/24/2024 12:17 ET Resident/PA/SOFTWARE VERIFICATION ENGINEER: Jeanne Puente Narrative 05/24/2024 12:19 PM EST CLINICAL HISTORY: Dysphagia, aspiration on recent esophagram. STUDY: Modified barium swallow study COMPARISON: Double contrast esophagram March 28, 2024 which showed silent aspiration. HISTORY: Patient is a 78-year-old male with history of pill dysphagia. TECHNIQUE: ??Multiple sequential fluoroscopic images of the lateral neck were obtained for a swallowing function study. ??Barium enhanced consistencies of pudding, honey, nectar, thin liquid, semi-solid, and a 13 mm barium tablet were utilized for evaluation. ??Examination was performed with the speech therapist present. ?? FINDINGS: There is flash laryngeal penetration noted on large sips of nectar and thin consistencies. There is a moderate amount of residual within the vallecula on all of the various consistencies which can be seen contributing to flash penetration on pudding consistency. There is no residual in the piriform sinuses. There is no evidence of alphonso aspiration on any of the various consistencies. Patient was instructed to swallow 13 mm barium tablet which was swallowed without difficulty and which promptly passed from the esophagus into the stomach. DAP: 0.5 Gycm^2 Procedure Note Yoan Duarte MD - 05/24/2024 CLINICAL HISTORY: Dysphagia, aspiration on recent esophagram. STUDY: Modified barium swallow study COMPARISON: Double contrast esophagram March 28, 2024 which showedsilent aspiration. HISTORY: Patient is a 78-year-old male with history of pill dysphagia. TECHNIQUE: Multiple sequential fluoroscopic images of the lateral neckwere obtained for a swallowing function study. Barium enhancedconsistencies of pudding, honey, nectar, thin liquid, semi-solid, and a 13mm barium tablet were utilized for evaluation. Examination was performedwith the speech therapist present. FINDINGS: There is flash laryngeal penetration noted on large sips of nectar andthin consistencies. There is a moderate amount of residual within thevallecula on all of the various consistencies which can be seencontributing to flash penetration on pudding consistency. There is noresidual in the piriform sinuses. There is no evidence of alphonso aspirationon any of the various consistencies. Patient was instructed to swallow 13mm barium tablet which was swallowed without difficulty and which promptlypassed from the esophagus into the stomach. DAP: 0.5 Gycm^2 IMPRESSION: Flash laryngeal penetration with moderate amounts of vallecular residuenoted on multiple consistencies as described above without evidence offrank aspiration. Please refer to the dedicated speech pathologist report for furtherdetails as clinically indicated. -------- FINAL REPORT -------- Dictated By: Jeanne Puente Dictated Date: 05/24/2024 12:12 ET Assigned Physician: Yoan Duarte Reviewed and Electronically Signed By: Yoan Duarte Signed Date: 05/24/2024 12:19 ET Workstation ID: [id number] Transcribed By: Self Edit Transcribed Date: 05/24/2024 12:17 ET Resident/PA/SOFTWARE VERIFICATION ENGINEER: Jeanne Puente us Bradford Parrish MD IMG FLUOROSCOPY PROCEDURES Final Result * CT Chest wo Contrast (05/21/2024 9:31 AM EST) Anatomical Region Laterality Modality Body Computed Tomogra phy 05/21/2024 9:36 AM EST Addenda Addendum by Vicenta Hernandez MD on 05/21/2024 9:[address] without intravenous contrast. History follow-up on pulmonary nodules. High lung cancer risk patient. Comparison with previous examinations, latest 04/26/2023. Again noted is biapical scarring as well as air bronchograms mostly more prominent on the right. Subpleural scarring in the right upper lobe which extends arm inferior and laterally appears to be somewhat more prominent. There is no evidence of new or enlarging pulmonary nodules, acute airspace consolidations, pleural or pericardial effusion. Previously noted bilateral small pulmonary nodules are stable. Patchy groundglass opacities in the right lower lobe medially arm mostly resolved. There is a new poorly defined groundglass densities in the right lower lobe located more laterally, axial image #206. There is stable scarring at the left base. Major airways are patent. Again noted is cardiomegaly and calcifications in the coronary arteries. There is no gross mediastinal or hilar lymphadenopathy. Evaluation is limited due to lack of intravenous contrast. Visualized portions of the abdominal organs are stable in appearance. Bony structures are also stable. CONCLUSIONS: No new or enlarging pulmonary nodules. Interval resolution of the groundglass opacities in the medial aspect of the right lower lobe. New subtle groundglass opacities in the right lower lobe located more laterally. Chronic stable findings at the apices with some interval progression of the subpleural scarring laterally. Additional stable findings as detailed. -------- FINAL REPORT -------- Dictated By: Vicenta Hernandez Dictated Date: 05/21/2024 09:36 ET Assigned Physician: Vicenta Hernandez Reviewed and Electronically Signed By: Vicenta Hernandez Signed Date: 05/21/2024 09:47 ET Workstation ID: [id number] Transcribed By: Self Edit Transcribed Date: 05/21/2024 09:36 ET Narrative 05/21/2024 9:[address] without intravenous contrast. History follow-up on pulmonary nodules. High lung cancer risk patient. Comparison with previous examinations, latest 04/26/2023. Again noted is biapical scarring as well as air bronchograms mostly more prominent on the right. Subpleural scarring in the right upper lobe which extends arm inferior and laterally appears to be somewhat more prominent. There is no evidence of new or enlarging pulmonary nodules, acute airspace consolidations, pleural or pericardial effusion. Previously noted bilateral small pulmonary nodules are stable. Patchy groundglass opacities in the right lower lobe medially arm mostly resolved. There is a new poorly defined groundglass densities in the right lower lobe located more laterally, axial image #206. There is stable scarring at the left base. Major airways are patent. Again noted is cardiomegaly and calcifications in the coronary arteries. There is no gross mediastinal or hilar lymphadenopathy. Evaluation is limited due to lack of intravenous contrast. Visualized portions of the abdominal organs are stable in appearance. Bony structures are also stable. CONCLUSIONS: No new or enlarging pulmonary nodules. Interval resolution of the groundglass opacities in the medial aspect of the right lower lobe. New subtle groundglass opacities in the right lower lobe located more laterally. Chronic stable findings at the apices with some interval progression of the subpleural scarring laterally. Additional stable findings as detailed. -------- FINAL REPORT -------- Dictated By: Vicenta Hernandez Dictated Date: 05/21/2024 09:36 ET Assigned Physician: Vicenta Hernandez Reviewed and Electronically Signed By: Vicenta Hernandez Signed Date: 05/21/2024 09:47 ET Workstation ID: [id number] Transcribed By: Self Edit Transcribed Date: 05/21/2024 09:36 ET Procedure Note Vicenta Hernandez MD - 05/21/[address] without intravenous contrast. History follow-up on pulmonary nodules. High lung cancer risk patient. Comparison with previous examinations, latest 04/26/2023. Again noted is biapical scarring as well as air bronchograms mostly moreprominent on the right. Subpleural scarring in the right upper lobe whichextends arm inferior and laterally appears to be somewhat more prominent.There is no evidence of new or enlarging pulmonary nodules, acute airspaceconsolidations, pleural or pericardial effusion. Previously notedbilateral small pulmonary nodules are stable. Patchy groundglass opacitiesin the right lower lobe medially arm mostly resolved. There is a newpoorly defined groundglass densities in the right lower lobe located morelaterally, axial image #206. There is stable scarring at the left base. Major airways are patent. Again noted is cardiomegaly and calcifications in the coronary arteries.There is no gross mediastinal or hilar lymphadenopathy. Evaluation islimited due to lack of intravenous contrast. Visualized portions of the abdominal organs are stable in appearance. Bonystructures are also stable. CONCLUSIONS: No new or enlarging pulmonary nodules. Interval resolution ofthe groundglass opacities in the medial aspect of the right lower lobe.New subtle groundglass opacities in the right lower lobe located morelaterally. Chronic stable findings at the apices with some intervalprogression of the subpleural scarring laterally. Additional stable findings as detailed. -------- FINAL REPORT -------- Dictated By: Vicenta Hernandez Dictated Date: 05/21/2024 09:36 ET Assigned Physician: Vicenta Hernandez Reviewed and Electronically Signed By: Vicenta Hernandez Signed Date: 05/21/2024 09:47 ET Workstation ID: [id number] Transcribed By: Self Edit Transcribed Date: 05/21/2024 09:36 ET Norma Santa MD IM CT PROCEDURES Edited Result - Final * Annual BMP Blood Test (10/11/2023) [facility] Annual BMP Blood Test abstracted Historical Provider HEALTH MAINTENANCE Final Result * Depression Screening (10/11/2023) [facility] Depression Screening abstracted Historical Provider HEALTH MAINTENANCE Final Result * Lipid panel (10/11/2023) [facility] LDL/HDL Ratio 3 0 - 4 Triglycerides 124 0 - 150 mg/dL Cholesterol 183 0 - 200 mg/dL HDL 66 >=40 mg/dL LDL Cholesterol 93 0 - 100 mg/dL Blood Venous blood specimen / Unknown Historical Provider LAB BLOOD ORDERABLES Lis l Result * Falls Risk Assessment (04/12/2023) Falls Risk Assessment abstracted Historical Provider HEALTH MAINTENANCE Final Result * Hepatitis C Screening (09/30/2014) Hepatitis C Screening abstracted Historical Provider HEALTH MAINTENANCE Final Result from Last 3 Months or Most Recently Relevant to Health Maintenance Insurance MEDICARE [facility] Care Teams Assortment Planner Relationship Specialty Start Date End Date Fernando Lees PA [address] [place] [address] PCP - General Internal Medicine 09/10/20
--- OUTSIDE RECORDS SUMMARY | 2024-07-11 17:48 | XMS_ITS | Clinical Summary ---
Author Organization [facility] Address [address] [place] [address] Care Team Providers Care National Flatbed Truck Driver Name Role Phone Unavailable Primary Care Provider Unavailabl e Social History Tobacco Use Types Packs/Day Years Used Date Smoking Tobacco: Never Assessed Sex and Gender Information Value Date Recorded Sex Assigned at Not on file Legal Sex Male 8:35 PM EDT Gender Identity Not on file Sexual Orientation Not on file Plan of Treatment Health Maintenance Due Date Last Done Comments Hepatitis C Screening 1945 DTaP/Tdap/Td (1 - Tdap) 12/08/1963 Pneumococcal 50+ years (1 of 1 - PCV) 12/08/1995 Zoster (Shingrix) (1 of 2) 12/08/1995 RSV (1 - 1-dose 75+ series) 2020 COVID-19 Vaccine ( - 2023-2 5 season) 2024 Influenza (#1) 2024 HPV Vaccine Aged Out No longer eligi ble based on patient's age to complete this topic Hep A Aged Out No longer eligi ble based on patient's age to complete this topic Hep B Aged Out No longer eligi ble based on patient's age to complete this topic Hib Aged Out No longer eligi ble based on patient's age to complete this topic Meningococcal ACWY Aged Out No longer eligible based on patient's age to complete this topic Zoster (Zostavax) [place] [id number] [facility]
--- OUTSIDE RECORDS SUMMARY | 2024-07-11 17:48 | XMS_ITS | Encounter Summary ---
Author Organization [employer] [place] [address] Care Team Providers Care Gang Bore Operator Name Role Phone Fernando Lees Primary Care Provider [phone] Reason for Visit * Reason Onset Date Comments whitney Walsh 06/28/2024 Encounter Details Date Type Department Care Team (Late st Contact Info) Description 06/28/2024 Telephone [facility] [address] [facility] 154 [place] [phone] Terry Kahn MD 300 [facility] 154 [place], [place] [id number] hold Nico Social History Tobacco Use Types Packs/Day Years Used Date Smoking Tobacco: Former Cigarettes Q uit: 12/14/1965 Smokeless Tobacco: Never Alcohol Use Standard Drinks/Week Comments Yes 0 [...] Record ed Within the last 3 months, miki lees many times did you visit the emergency [...] care for your loved ones. For example, child caregiver or elderly care for an older adult? [...] on file documented as of this encounter Progress Notes * Syed Marti RN - 06/29/2024 9:27 AM EST Called surgical elastic knitter again at [facility] in [place] this AM and LVM for acall back. [phone]. Called main desk and put on hold to talk with SX coordinator. Talked with sx coordinator and she states no reason to hold anticoag for the cataract surgery, they are not requesting for pt to hold. [place] I would make the patient aware. Called pt back this AM and made aware. Is thankful for the call back. * Syed Marti RN - 06/28/2024 11:20 AM EST Pt uses [facility] in [place]- [place] with the surgical elastic knitter this AM - for any advisement on Eliquis, awaiting call back.. * Cristina Awad - 06/28/2024 10:55 AM EST The patient called he has a cataract surgery on 07/09/24 and 07/23/24. He is asking if he needs to hold Eliquis before this surgery. Please call him back at [phone]. documented in this encounter Plan of Treatment Upcoming Encounters Date Type Department Care Team (Late st Contact Info) Description 07/18/2024 2:15 PM EST Office Visit Endocrinology [address] [phone] Veronica Romero MD [address] [place] [phone] 08/08/2024 12:30 PM EDT Ancillary Procedure [address] [phone] Aurelio Maxwell 08/08/2024 1:30 PM EDT Office Visit [address] [phone] Norma Santa MD [address] [facility] [address] [place] [address] 10/22/2024 12:45 PM EDT Office Visit Adult Medicine [facility] [address] [place] [phone] Fernando Lees PA [address] [place] [address] documented as of this encounter Visit Diagnoses Not on filedocumented in this encounter Additional Health Concerns Assessment Noted Time PHQ-9 Depression Total Score: 0 04/13/20 24 11:23 PM EST documented as of this encounter Care Teams Gang Bore Operator Relationship Specialty Start Date End Date Fernando Lees PA [address] [place] [address] PCP - General Internal Medicine 09/10/20 documented as of this encounter
--- NOTE | 2024-07-20 09:50 | HO.ANESPROP2 ---
Documented by User: Yamileth Ramos NP 07/20/24 09:50 HPI - Anesthesia Eval Consult details Narrative: 78yo M for Right Cataract Extraction IOL Insertion Left eye 07/09/24: Midaz 2 Eliquis for afib PMFSH Active Problems Active Problems: All Active Problems Unintentional weight loss (Acute) Past Medical History Medical History Thyrotoxicosis Atrial fibrillation Asthma Cardiomyopathy Secondary malignant neoplasm of femoral lymph nodes Hx of malignant melanoma of skin Central sleep apnea Sick sinus syndrome Mitral valve regurgitation Hyperlipidemia Sensorineural hearing loss, bilateral Chronic rhinitis Benign essential HTN Cataracts, bilateral Family History Family history of problems with anesthesia: No Surgical History Surgical History Hx of left cataract extraction (07/09/24) Hx of colonoscopy History of Problems with Anesthesia: No Social History Social History Household Members: Spouse Housing: House Are you a primary rn urgent care to a significant other at home: No Do you presently have visiting nurse or other home services: No Patient Tobacco Use Status: Former Tobacco user Tobacco use type: Cigarette Smoked in Last 30 Days: No Use of substances other than those prescribed or required for medical reasons: No Are you DNR?: No Advance Directives: No Advance Directives Information Provided: Yes Advance Directives on File: No Recently lost weight without trying: No Nutrition Risks: No Nutritional Risk Poor oral hygiene: No Meds Allergies Allergy/AdvReac Type Severity Reaction Status Date / Time levofloxacin Allergy Unknown Verified 07/23/24 07:12 Home Medications ?Medication ?Instructions ?Recorded ?Confirmed ?Last Taken ?Type albuterol sulfate 90 mcg/actuation 2 puff inhalation Q6H PRN 07/04/24 07/04/24 Unknown History aerosol inhaler Shortness Of Breath Or Wheezing apixaban 5 mg tablet (Eliquis) 5 mg PO BID 07/04/24 07/04/24 07/22/24 20:00 History budesonide 180 mcg/actuation 2 inh inhalation BID 07/04/24 07/04/24 Unknown History breath activated powder inhaler (Pulmicort Flexhaler) cholecalciferol (vitamin D3) 50 50 mcg PO DAILY 07/04/24 07/04/24 Unknown History mcg (2,000 unit) capsule (Vitamin D3) fluticasone propionate 50 2 spray intranasal DAILY 07/04/24 07/04/24 Unknown History mcg/actuation nasal spray,suspension lisinopril 20 mg tablet 20 mg PO DAILY 07/04/24 07/04/24 Unknown History multivit,calc,mins-folic 240 1 tab PO DAILY 07/04/24 07/04/24 Unknown History mcg-vit K1 30 mcg-lycopene 300 mcg tablet (One-A-Day Men's Complete) Exam Height,Weight and Vital Signs: Height 6 ft 1 in Weight 77.2 kg Assessment and Plan Assessment Anesthesia Assessment: Chart Reviewed Final Anesthetic Review Family History of Problems with Anesthesia: No History of Problems with Anesthesia: No Documented by User: Deja Rangel MD 07/23/24 08:08 HPI - Anesthesia Eval Consult details Narrative: 78yo M for Right Cataract Extraction IOL Insertion Left eye 07/09/24: Midaz 2 Eliquis for afib. Last dose 07/22/24 07/23/24: HR going as low as 32. Patient states HR has always been low. Exercises. Asymptomatic but BP 89/45. Patient saw Executive Legal Secretary recently. No issues. HR when here for cataract 2 weeks ago as low as 37. Will attempt to speed up with glycopyrrolate [facility] Past Medical History Medical History Thyrotoxicosis Atrial fibrillation Asthma Cardiomyopathy Secondary malignant neoplasm of femoral lymph nodes Hx of malignant melanoma of skin Central sleep apnea Sick sinus syndrome Mitral valve regurgitation Hyperlipidemia Sensorineural hearing loss, bilateral Chronic rhinitis Benign essential HTN Cataracts, bilateral Family History Family history of problems with anesthesia: No Surgical History Surgical History Hx of left cataract extraction (07/09/24) Hx of colonoscopy History of Problems with Anesthesia: No Social History Social History Household Members: Spouse Housing: House Are you a primary rn urgent care to a significant other at home: No Do you presently have visiting nurse or other home services: No Patient Tobacco Use Status: Former Tobacco user Tobacco use type: Cigarette Smoked in Last 30 Days: No Use of substances other than those prescribed or required for medical reasons: No Are you DNR?: No Advance Directives: No Advance Directives Information Provided: Yes Advance Directives on File: No Recently lost weight without trying: No Nutrition Risks: No Nutritional Risk Poor oral hygiene: No Meds Allergies Allergy/AdvReac Type Severity Reaction Status Date / Time levofloxacin Allergy Unknown Verified 07/23/24 07:12 Home Medications ?Medication ?Instructions ?Recorded ?Confirmed ?Last Taken ?Type albuterol sulfate 90 mcg/actuation 2 puff inhalation Q6H PRN 07/04/24 07/04/24 Unknown History aerosol inhaler Shortness Of Breath Or Wheezing apixaban 5 mg tablet (Eliquis) 5 mg PO BID 07/04/24 07/04/24 07/22/24 20:00 History budesonide 180 mcg/actuation 2 inh inhalation BID 07/04/24 07/04/24 Unknown History breath activated powder inhaler (Pulmicort Flexhaler) cholecalciferol (vitamin D3) 50 50 mcg PO DAILY 07/04/24 07/04/24 Unknown History mcg (2,000 unit) capsule (Vitamin D3) fluticasone propionate 50 2 spray intranasal DAILY 07/04/24 07/04/24 Unknown History mcg/actuation nasal spray,suspension lisinopril 20 mg tablet 20 mg PO DAILY 07/04/24 07/04/24 Unknown History multivit,calc,mins-folic 240 1 tab PO DAILY 07/04/24 07/04/24 Unknown History mcg-vit K1 30 mcg-lycopene 300 mcg tablet (One-A-Day Men's Complete) Exam Height,Weight and Vital Signs: Height 6 ft 1 in Weight 77.2 kg Vital Signs Temp Pulse Resp BP Pulse Ox O2 Del Method 07/23/24 07:35 56 16 102/54 L 07/23/24 07:11 89/45 L 07/23/24 06:50 98.0 F 39 L 18 98/80 96 Room Air Airway Mallampati Class: II TM Dist: >3cm Neck ROM: Full Partial: Lower Loose/Missing/Broken Teeth: Yes (Denies broken or loose teeth. Partial dentures ) Heart: Irregular Lungs: Occasional wheeze Assessment and Plan Assessment Anesthesia Assessment: Anesthesia Plan Discussed and Chart Reviewed Final Anesthetic Review Family History of Problems with Anesthesia: No History of Problems with Anesthesia: No NPO: Yes ASA Class: III Final Preanesthetic Review: No Changes in Pt Med Stat, Meds/Allgs Chart Reviewed, Consent Obtained/Reviewed and Anes Risks/Benef Reviewed Patient Risk: Intermediate Procedure Risk: Low Assessment/Block/Sedation in SS: Assess/Block/Sedation-SS Anesthetic Plan Anesthetic Plan: MAC: Disposition: Standard PACU
[2024-07-23 06:50] VITALS: BP 98/80; PULSE 39; RESP 18; TEMP 36.7; O2SAT 96
[2024-07-23] MEDS: Lactated Ringers 500 ML 50 ML IV (06:54)
[2024-07-23] MEDS: Tetracaine HCl/PF 0.5% Oph Sol 4 ML DROPS 1 DROP EYE-RIGHT (06:54)
[2024-07-23] MEDS: Cyclopentolate 1 % Ophth Sol 2 ML DRPBTL 1 DROP EYE-RIGHT ×3 (06:54→07:07)
[2024-07-23] MEDS: Tropicamide 1 % Ophth Sol 3 ML BTL 1 DROP EYE-RIGHT ×3 (06:55→07:07)
[2024-07-23] MEDS: Ketorolac Tromethamine 0.5% Op 5 ML DROPS 1 DROP EYE-RIGHT ×3 (06:55→07:07)
[2024-07-23] MEDS: Phenylephrine HCL 2.5% Oph SoL 2 ML BOTTLE 1 DROP EYE-RIGHT ×3 (06:55→07:07)
[2024-07-23 07:11] VITALS: BP 89/45
--- NOTE | 2024-07-23 07:32 | PC.NURSE ---
md hayden aware of patients heart rate and rhythm. asymptomatic. md hayden by bedside with patient.
[2024-07-23 07:35] VITALS: BP 102/54; PULSE 56; RESP 16
--- NOTE | 2024-07-23 07:44 | PC.NURSE ---
Dr. Rangel updated regarding patient pulse, rhythm and BP. This is patient baseline. Documentation in chart. Patient remains asymptomatic. Dr. Rangel stated she will medicate to try and increase heart rate. Ok to proceed.
--- NOTE | 2024-07-23 07:46 | PC.NURSE ---
report given to mariluz marquis rn at this time.
--- NOTE | 2024-07-23 07:47 | P.PCNO_ITS ---
Ophthalmology Procedure Procedure Date of Service: 07/23/24 Ophthalmology Viscoelastic: Healon Duet Dual Pack Pro Ophthalmology Lenses: IOL Acrysof MP - [id number] (20) Procedure Notes: PREOPERATIVE DIAGNOSIS: Decreased visual acuity right eye secondary to cataract POSTOPERATIVE DIAGNOSIS: Same PROCEDURE: Right cataract extraction with intraocular lens insertion SURGEON: Anuj Lopez M.D. ANESTHESIA: Topical/MAC ESTIMATED BLOOD LOSS: None COMPLICATIONS: None After obtaining informed consent, the patient was brought to the operating room suite and placed in the supine position. After adequate sedation per anesthesia, topical drops of Tetracaine were given to the right eye. The eye was then prepped and draped in the usual sterile fashion. The operating room microscope was then positioned over the operative eye and a lid speculum placed. A paracentesis was created. Viscoelastic was then instilled into the anterior chamber. A three plane incision was then created temporally, utilizing a 2.85 mm keratome. Capsulotomy forceps were then utilized to create a circular tear capsulotomy. Hydrodissection and hydrodelineation were carried out until adequate mobilization of the nucleus occurred. Phacoemulsification was then utilized to remove the dense central nucl eus followed by removal of the cortical material utilizing the automated aspiration irrigation unit. Viscoelastic was instilled into the posterior capsular bag followed by placement of a posterior chamber intraocular lens without difficulty. The residual Viscoelastic was then removed utilizing the automated IA machine. The wound was checked and found to be watertight. The patient tolerated the procedure well and the lid speculum was removed. Intracameral injection of Vigamox 0.1 mL followed by a subtenon injection of Kenalog-40 0.2 mL were administered. The patient will be seen in the a.m.
--- NOTE | 2024-07-23 07:47 | MHC.SHP ---
Pre-Procedural Eval Section A - 24 Hr Update-Section A only Date of Service: 07/23/24 The patient is an INPATIENT: No Changes since office visit: No Cold of Flu in the past 2 weeks, No New Medical Problems, No Changes in Medication and No Patient answered all questions The patient has been examined within 24 hours of the surgical procedure. The History & Physical has been completed within 30 days and I have reviewed it.: Yes Section B - Complete if H&P > 30 days Chief Complaint: Age-related nuclear cataract, right eye Allergies: Allergies Allergy/AdvReac Type Severity Reaction Status Date / Time levofloxacin Allergy Unknown Verified 07/23/24 07:12 Plan Diagnosis/Plan: Unchanged I have reviewed the history and physical and performed a pertinent physical examination on my patient. No changes have occurred unless specified. Time Spent With Patient Time: Total time managing care of this patient today ____ minutes.
[2024-07-23 08:13] VITALS: BP 109/59; PULSE 54; RESP 16; TEMP 36.8; O2SAT 99
== END 2024-07-23 08:22 | disposition home or self-care (01) ==
PROVIDERS: PCP Physician Assistant Medical; Visit Provider Ophthalmology
PROC: (CPT 66985; principal; 2024-07-23 08:00)
DX: H25.11 Age-related nuclear cataract, right eye (principal); H52.4 Presbyopia; H18.413 Arcus senilis, bilateral; H35.443 Age-related reticular degeneration of retina, bilateral; I10 Essential (primary) hypertension; I49.5 Sick sinus syndrome; E78.5 Hyperlipidemia, unspecified; I48.91 Unspecified atrial fibrillation; J45.909 Unspecified asthma, uncomplicated; G47.37 Central sleep apnea in conditions classified elsewhere; Z79.51 Long term (current) use of inhaled steroids; Z79.01 Long term (current) use of anticoagulants; Z79.899 Other long term (current) drug therapy; Z87.891 Personal history of nicotine dependence
CPT/HCPCS: 66984; J2003; J2250; J3010; J3301; V2630

== ENCOUNTER 2025-01-16 10:12 | Outpatient (AMB) | payer MEDICARE, OTHER, SELFPAY ==
--- OUTSIDE RECORDS SUMMARY | 2024-11-13 10:00 | XMS_ITS | Encounter Summary ---
Author Name [employer] [employer] [place] Organization [employer] [employer] [place] Address [address] [place] [address] Support Name Relationship Address Phone ZANDRA ECHEVERRIA Next of Kin [address] [place] [address] ZANDRA ECHEVERRIA Emergency Contact [address] [facility] [place] [address] Insurance Providers: All historical and current Section Date Range: From patient's date of to the date document was created. This section includes the names of all active insurance providers for the patient. Insurance Provider Type of Coverage Plan Name Start of Policy Coverage End of Policy Coverage Group Number Member ID Insurance Provider's Telephone Number Policy Simpson's Name Patient's Relationship to Policy Simpson [employer] ([id number]) JASPREETT REN [facility] Nov 13, 2017 [id number] Kia ECHEVERRIA PATIENT MEDICARE (WNR) MEDICARE (M) PART A Nov 13, 2010 PART A [id number] [phone] Kia ECHEVERRIA PATIENT MEDICARE (WNR) MEDICARE (M) PART B Nov 13, 2010 PART B [id number] Kia ECHEVERRIA PATIENT [facility] Sep 06, 2008 [id number] Kia ECHEVERRIA PATIENT FOR LIFE TFL Apr 09, 2013 [id number] Kia ECHEVERRIA PATIENT FOR LIFE TFL* Apr 09, 2013 [id number] Kia ECHEVERRIA PATIENT UNICARE PREFERRED PROVIDER ORGANIZAT ION (PPO) [facility] Sep 06, 2008 [id number] Kia ECHEVERRIA PATIENT [employer] (OPT/PROF ) [facility] * Nov 13, 2010 [id number] Kia ECHEVERRIA PATIENT [employer] PREFERRED PROVIDER ORGANIZAT ION (PPO) [facility] N Sep 06, 2008 [id number] Kia ECHEVERRIA PATIENT Selected Encounter This section includes the information on record at [place] for the Encounter. Date/Time Encounter Type Encounter Description Reason Pro vider Source Nov 13, 2024 02:00 PM Outpatient Encounter AUDIOLOGY IHE Encounter Template Text not used by [place] Plan of Treatment: Future Appointments (+ 6 months) and Future Tests (+/- 45 days) The Plan of Treatment section includes future care activities for the patient from all [place] treatmentfacilities. This section includes future appointments and future orders which are active, pending or scheduled. Future Appointments This section includes appointments that were scheduled to occur 6 months from the date of the Encounter, up to a maximum of 20 appointments. The data comes from all [place] treatment facilities. Appointment Date/Time Appointment Type Appointme nt Facility Name Nov 21, 2024 02:00 PM AMBULATORY - [facility]
--- OUTSIDE RECORDS SUMMARY | 2024-11-21 10:00 | XMS_ITS | Encounter Summary ---
Author Name [facility] [place] Address [address] [place] [address] Support Name Relationship Address Phone JUWAN ZANDRA Next of Kin [address] [facility] [place] [address] ZANDRA ECHEVERRIA Emergency Contact [address] [facility] [place] [address] Insurance Providers: All historical and current [...] Patient's Relationship to Policy Simpson [employer] ([id number]) PRESCRIPT REN [facility] Nov 13, 2017 [id number] Kia ECHEVERRIA PATIENT MEDICARE (WNR) MEDICARE (M) PART A Nov 13, 2010 PART A [id number] Kia ECHEVERRIA PATIENT MEDICARE (WNR) MEDICARE (M) PART B Nov 13, 2010 PART B [id number] Kia ECHEVERRIA PATIENT [facility] Sep 06, 2008 [id number] Kia ECHEVERRIA PATIENT FOR LIFE TFL Apr 09, 2013 [id number] Kia ECHEVERRIA PATIENT FOR LIFE TFL* Apr 09, 2013 [id number] Kia ECHEVERIRA PATIENT UNICARE PREFERRED PROVIDER ORGANIZAT ION (PPO) [facility] N Sep 06, 2008 [id number] Kia ECHEVERRIA PATIENT [employer] (OPT/PROF ) [facility] * Nov 13, 2010 [id number] Kia ECHEVERRIA PATIENT [employer] PREFERRED PROVIDER ORGANIZAT ION (PPO) [facility] N Sep 06, 2008 [id number] Kia ECHEVERRIA PATIENT Selected Encounter This section includes the information on record at [place] for the Encounter. Date/Time Encounter Type Encounter Description Reason Provider Source Nov 21, 2024 02:00 PM HEARING AID REPAIR/MODIFYING AUDIOLOGY ICD-10-CM Z46.1 Encounter for fitting and adjustment of hearing aid EMERITA MCGINNIS Simeon Encounter Template Text not used by [place] Assessments - Encounter Diagnoses This section includes the primary and secondary diagnoses documented for the Encounter. Date/Time Primary/Secondary Diagnosis Diagnosis Name Provider Source Nov 21, 2024 02:52 PM PRIMARY Encounter for fitting and adjustment of hearing aid JAMIR COX [facility] Nov 21, 2024 02:52 PM SECONDARY Sensorineural hearing loss, bilateral JAMIR COX [facility] Encounter Notes: All associated encounter notes This section contains the clinical notes associated to the Encounter. Date/Time Encounter Note(s) Provider Source Nov 21, 2024 08:01 AM AUDIOLOGY NOTE: LOCAL TITLE: AUDIOLOGY [facility] CONSULTANT STANDARD TITLE: AUDIOLOGY NOTE DATE OF NOTE: NOV 21, 2024@08:01 ENTRY DATE: NOV 21, 2024@08:01:34 AUTHOR: GABRIELA COX COSIGNER: EMERITA MCGINNIS URGENCY: STATUS: COMPLETED November 21, 2024 History/Background: [place] was seen for a hearing aid follow up, accompanied by his , Shruti. The presented today requesting maintenance on his hearing aids. Hearing aids: Oticon Real 1 miniRITE-Ts Serial Numbers: [id number] Battery size: 312 Date Issued: 10/26/2022 Hearing aid check: Both hearing aids were cleaned and checked. Replaced receivers, retention lines, domes and batteries. Biologic check was good. Otoscopy: Clear canals, the noted he had his ears cleaned last week. Plan: The [place] will follow up as needed. /leora/ GABRIELA COX Audiology Health Tank Farm Operator Signed: 11/21/2024 14:52 /leora/ EMERITA Byers CCC-A CHIEF, AUDIOLOGY/DENTAL INTERNSHIP Cosigned: 11/21/2024 15:06 GABRIELA COX [facility]
--- OUTSIDE RECORDS SUMMARY | 2025-01-16 11:39 | XMS_ITS | Continuity of Care Document ---
Author Name [facility] Organization [facility] Care Team Providers Care Spinal Surgeon Name Role Phone [facility] Unavailable Unavailable Problems Combined list of problems from Department of Defense and Veterans Affairs facilities. It does not include entries that were removed or entered in error. Problem Status Onset Date Problem Type Date of Resolution Comments Source tetracycline caused photosensitivity Active 05/16/18 68 Condition [facility] RHINITIS CHRONIC Active Condition [facility] BRONCHITIS Inactive Condition [facility] Diagnosis: ICD-10-CM Z46.1 Encounter for fitting and adjustment of hearing aid Active Diagnosis [facility] Medications Combined list of outpatient medications from Department of Defense and Veterans Affairs facilities.Medications provided include 1) outpatient medications from the last 15 months, and 2) patient-reported medications. Medication Details Route Status Patient Instructions Prescription Expires Prescription Number Last Dispense Date Ordering Provider Order Date Order Qty Source AMOXICILLIN (AMOXICILLI N), 500 MG, TABLET, ORAL, FaradayON PHARMA L, 100 ea. BOTTLE Active [id number] 2023 28 Pharmac y Data Transac tion Service Facilit y Allergies, Adverse Reactions, Alerts Combined list of allergies from Department of Defense and Veterans Affairs facilities. It does not include entries that were removed or entered in error. Substance Category Reaction Severity Reaction type Status Date Reported Comments Source No Known Allergies Drug allergy (disorder) active 04/20/2012 [facility] Immunizations Combined list of available immunizations from the Department of Defense and Veterans Affairs facilities. 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 Comments Source influenza virus vaccine, whole virus 1 2002 Unknown, Provider [id number] [place] (SABINA) complet ed influenza virus vaccine, whole virus [facility] influenza virus vaccine, whole virus 1 2001 Unknown, Provider [id number] Shagu[place]a [place] (SABINA) complet ed influenza virus vaccine, whole virus [facility] typhoid Vi capsular polysaccharid e vaccine 1 2001 Unknown, Provider [id number] ([facility]) complet ed typhoid Vi capsular polysacch aride vaccine DoD yellow fever vaccine 1 2000 Unknown, Provider [id number] ([facility]) complet ed yellow fever vaccine DoD influenza virus vaccine, whole virus 1 2000 Unknown, Provider [id number] [facility] ([facility]) complet ed influenza virus vaccine, whole virus DoD tuberculin skin test; purified protein derivative solution, intradermal 1 2000 Unknown, Provider [id number] [facility] ([facility]) complet ed tuberculi n skin test; purified protein derivativ e solution, intraderm al DoD tuberculin skin test; purified protein derivative solution, intradermal 1 1999 Unknown, Provider [id number] Sammy (KAREN) complet ed tuberculi n skin test; purified protein derivativ e solution, intraderm al DoD tuberculin skin test; purified protein derivative solution, intradermal 1 1999 Unknown, Provider 96 () complet ed tuberculi n skin test; purified protein derivativ e solution, intraderm al DoD anthrax vaccine 3 1999 Unknown, Provider 24 [employer] [place] ([facility]) complet ed anthrax vaccine DoD anthrax vaccine 2 1999 Unknown, Provider [id number] [employer] [place] ([facility]) complet ed anthrax vaccine DoD anthrax vaccine 1 1999 Unknown, Provider [id number] [employer] [place] ([facility]) complet ed anthrax vaccine DoD hepatitis A [...] vaccine, whole virus 1 1998 Unknown, Provider [id number] Felix (WAL) complet ed influenza virus vaccine, whole virus DoD hepatitis A vaccine, adult dosage 1 1998 Unknown, Provider [id number] [employer] (MSD) complet ed hepatitis A vaccine, adult dosage DoD influenza virus vaccine, whole virus 2 1997 Unknown, Provider [id number] 16 San[employer]i Pasteur ([facility]) complet ed influenza virus vaccine, whole virus DoD influenza virus vaccine, whole virus 1 1996 Unknown, Provider 16 () complet ed influenza virus vaccine, whole virus DoD typhoid vaccine, parenteral, acetone-kille d, dried ([place] ) 2 1995 Unknown, Provider 53 () complet ed typhoid vaccine, parentera l, acetone-k illed, dried ([place] ) DoD yellow fever vaccine 1 1989 Unknown, Provider 37 () complet ed yellow fever vaccine DoD trivalent poliovirus vaccine, live, oral 1 1989 Unknown, Provider 02 () complet ed trivalent polioviru s vaccine, live, oral DoD tetanus and diphtheria toxoids, adsorbed, preservative free, for adult use (2 Lf of tetanus toxoid and 2 Lf of diphtheria toxoid) 1 1988 Unknown, Provider 09 () complet ed tetanus and diphtheri a toxoids, adsorbed, preservat gifty free, for adult use (2 Lf of tetanus toxoid and 2 Lf of diphtheri a toxoid) DoD trivalent poliovirus vaccine, live, oral 1 1963 [...] ADM Date DC Date Status Disposition Source [facility](NI [facility] Tm 1) OUTPATIENT [id number] COLD LIKE SYMPTOM S/SORE THROAT/ HOARSE VOICE MOWALTHEA HIGGINS O 04/18 Released w/o Limitations [facility](N I [facility] Tm 1) [facility] Tm 1) OUTPATIENT [id number] f/u for lab result ALTHEA OSBORNE O 04/20 Released w/o Limitations [facility](N I [facility] Tm 1) [facility] HEARING AID FITTING/CH ECKING [id number] Diagnos is: ICD-10- CM Z46.1 Encount er for fitting and adjustm ent of hearing aid MAO Powers 10/26 [facility] Outpatient Encounter [id number] 11/13 [facility] HEARING AID REPAIR/MOD IFYING [id number] Diagnos is: ICD-10- CM Z46.1 Encount er for fitting and adjustm ent of hearing aid CORNELL MCGINNIS 11/21 [facility] Social History Combined list of available smoking, tobacco, and other social history from Department of Defense and Veterans Affairs facilities. Social History Type Response Date Comment Sour e This section is an empty social history section. DoD
--- OUTSIDE RECORDS SUMMARY | 2025-01-16 11:41 | XMS_ITS ---
Author Organization [facility] Address [address] [place] [address] Phone Care Team Providers Care Vehicle Glass Technician Name Role Phone Fernando Lees Primary Care Provider [phone] Active Problems Problem Noted Date Diagnosed Date Benign essential hypertension 04/05/2024 Chronic rhinitis 04/05/2024 Sensorineural hearing loss, bilateral 04/05/2024 Hyperlipidemia 11/25/2020 Overview (03/01/2024): Hyperlipidemia Mitral valve regurgitation 11/25/2020 Overview (03/01/2024): Mitral valve regurgitation Sick sinus syndrome (CMS/HCC V24, CMS/HCC V28) 0 11/25/2020 Overview (03/01/2024): Sick sinus syndrome Central sleep apnea with Usman-Burton respirati on 10/04/2018 Overview (03/01/2024): [facility] Home Sleep Apnea Test: Date 09/25/2018; Wt 175#; BMI 23; KELLEY 14, AI 6; HI 9; Unclassified apneas 0; Obstructive apneas 23; Central apneas 5; Mixed apneas 2; hypopneas 45; average oxygen saturation 94% (lowest 88% without saturations <88% for 5% or more of study) [facility] Polysomnogram treatment study. Date 11/04/2018. Wt [...] apnea. Return to clinic in 1 year - Complex Sleep Apnea with Central Apneas and Usman Burton Breathing- mild; mostly hypopneas, obstructive apneas and central apneas; without sleep related hypoventilation by 2019 home polysomnogram. - 11/04/2018 Pre-study ESS 4. 1/4 RLS symptoms. - 03/2018 Echo EF 40% - Afib by his report in the past. + cardiomyopathy with EF 40%. 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 [...] treatments are documented for this patient in [facility]. Treatments may have been administered in another system. Lifetime Dose Tracking * Chemical Lifetime Dose Automatic Entry Manual Entr y Fluoro Time 1 minutes 1 minutes 0 minutes Air Kerma 3.8 mGy 3.8 mGy 0 mGy CTDIvol 10.35 mGy 10.35 mGy 0 mGy Dose Area Product 0.5 mGy-cm2 0.5 mGy-cm2 0 mGy-cm2
--- OUTSIDE RECORDS SUMMARY | 2025-01-16 11:41 | XMS_ITS | Clinical Summary ---
Author Organization [facility] Address [address] [place] [address] Phone Care Team Providers Care Steel Barrel Reamer Name Role Phone Fernando Lees Primary Care Provider [phone] Allergies Active Allergy Reactions Criticality Noted Date Comments Levofloxacin 07/13/2023 Medications cholecalciferol (VITAMIN D-3) 50 mcg (2,000 unit) capsule Take 1 capsule (2,000 Units total) by mouth 1 (one) time each day. Active fluticasone propionate (FLONASE) 50 mcg/actuation nasal spray 2 sprays in each nostril once per day for 2 weeks. 2 Active UNABLE TO FIND CPAP Historical (HISTORICAL CPAP) 2 Active multivit-mineral s/FA/lycopene (ONE-A-DAY MEN'S 50 PLUS ORAL) 1 tab qd Active budesonide (Pulmicort Flexhaler) 180 mcg/actuation inhalerIndicatio ns:Moderate persistent asthma, unspecified whether complicated Inhale 1 puff by mouth 2 (two) times a day. Rinse mouth with water after use to reduce aftertaste and incidence of candidiasis. Do not swallow. 1 each 12 4 04/05/20 25 Active albuterol HFA (PROAIR HFA ; PROVENTIL HFA ; VENTOLIN HFA) 90 mcg/actuation inhalerIndicatio ns:Moderate persistent asthma, unspecified whether complicated Inhale 2 puffs by mouth every 6 (six) hours if needed for wheezing or shortness of breath. 3 each 3 4 04/05/20 25 Active apixaban (Eliquis) 5 mg tablet TAKE 1 TABLET BY MOUTH TWICE DAILY 180 tablet 3 5 Active lisinopriL (PRINIVIL,ZESTRI L) 20 mg tablet TAKE 1 TABLET(20 MG) BY MOUTH 1 TIME EACH DAY 90 tablet 1 5 Active fluticasone furoate (Arnuity Ellipta) 200 mcg/actuation blister with device inhaler Inhale 1 puff by mouth 1 (one) time each day. 1 each 5 5 06/30/19 26 Active fluticasone furoate (Arnuity Ellipta) 100 mcg/actuation blister with device inhaler Inhale 1 puff by mouth 1 (one) time each day. 3 each 3 5 01/09/20 26 Active Active Problems Problem Noted Date Diagnosed Date Benign essential hypertension 04/05/2024 Chronic rhinitis 04/05/2024 Sensorineural hearing loss, bilateral 04/05/2024 Hyperlipidemia 11/25/2020 Overview (03/01/2024): Hyperlipidemia Mitral valve regurgitation 11/25/2020 Overview (03/01/2024): Mitral valve regurgitation Sick sinus syndrome (CMS/HCC V24, CMS/HCC V28) 0 11/25/2020 Overview (03/01/2024): Sick sinus syndrome Central sleep apnea with Usman-Burton respirati on 10/04/2018 Overview (03/01/2024): [facility] Home Sleep Apnea Test: Date 09/25/2018; Wt 175#; BMI 23; KELLEY 14, AI 6; HI 9; Unclassified apneas 0; Obstructive apneas 23; Central apneas 5; Mixed apneas 2; hypopneas 45; average oxygen saturation 94% (lowest 88% without saturations <88% for 5% or more of study) [facility] Polysomnogram treatment study. Date 11/04/2018. 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/2016 Allergy 06/05/2010 Cardiomyopathy (CMS/HCC V24, CMS/HCC V28) 2008 Overview (03/01/2024): Mild [...] 01/26/2006 Geniculate herpes zoster 01/26/2006 Atrial fibrillation ([facility] V24, [facility] V28) 0 01/04/2006 Overview (03/01/2024): Longstanding persistent [...] Encounters Date Type Department Care Team Description 01/07/2025 Telephone Pulmonolgy - [place] [address] [phone] Norma Santa MD 12/31/2024 Telephone Pul[facility]olgy - [place] [address] [phone] Norma Santa MD 10/30/2024 Telephone Pulmonolgy - [place] [address] [phone] Anh Hannah MA 10/29/2024 10:00 AM EDT Office Visit Pulmonolgy [facility] [address] [phone] Norma Santa MD Mild persistent asthma, unspecified whether complicated (Primary Dx); Central apnea; Usman-Burton respiration; Hypoxemia; Abnormal chest CT 10/29/2024 9:00 AM EDT Ancillary Procedure Pulmonolgy - [place] [address] [phone] Dyspnea, unspecified type; Mixed sleep apnea; Upper respiratory tract infection, unspecified type; Lung nodules; Abnormal chest CT; Ex-smoker 10/22/2024 12:45 PM EDT Office Visit Adult Medicine [address] [phone] Fernando Lees PA Atrial fibrillation, unspecified type ([facility]/HCC V24, CMS/[facility] V28) (Primary Dx); Central sleep apnea with Usman-Burton respiration; Asthma, unspecified asthma severity, unspecified whether complicated, unspecified whether persistent; Cardiomyopathy, unspecified type (CMS/HCC V24, CMS/HCC V28); Hyperlipidemia, unspecified hyperlipidemia type; Benign essential hypertension; Mitral valve insufficiency, unspecified etiology; Thyrotoxicosis without thyroid storm, unspecified thyrotoxicosis type; Impaired fasting glucose; Elevated prostate specific antigen (PSA) 10/16/2024 Telephone Pulmonolgy [address] [place] [address] Norma Santa MD from Last 3 Months Immunizations Name Administration [...] History Medical History Date Comments Atrial fibrillation ([facility] V24, [facility] V28) DX:Atrial fibrillation (HCC) Atrial fibrillation ([facility] V24, [facility] V28) 01/04/2006 DX:Atrial fibrillation (HCC) Thyrotoxicosis without menti on of [...] [address] parrish Cardiomyopathy ([facility] V24, [facility] V28) 02/06/2009 DX:Cardiomyopathy (HCC) Historical Medical DX 06/05/2010 DX:Allergy Malignant melanoma ([facility] V24, [facility] V28) 01/12/2016 DX:Malignant melanoma (HCC) Family History Medical History Relation Name Comments [...] ed Within the last 3 months, miki w many times did you visit the [...] care for your loved ones. For example, residential child care counselor or elderly care for an older adult? [...] Sign Reading Time Taken Comments Blood Pressure 110/50 10/29/2024 9:03 AM EDT Pulse 50 10/29/2024 9:03 AM EDT Temperature 36.3 C (97.3 F) 10/29/2024 9:03 AM EDT Respiratory Rate 14 10/22/2024 12:37 PM EDT Oxygen Saturation 100% 10/29/2024 9:03 AM EDT Inhaled Oxygen Concentration - - Weight 78.7 kg (173 lb 6.4 oz) 10/22/2024 12:37 PM EDT Height 185.4 cm (6' 1 ) 10/22/2024 12:37 PM EDT Body Mass Index 22.88 10/22/2024 12:37 PM EDT Plan of Treatment Upcoming Encounters Date Type Department Care Team (Late st Contact Info) Description 04/23/2025 1:00 PM EST Office Visit Adult Medicine [facility] [address] [place] [phone] Fernando Lees PA [address] [place] [address] 05/01/2025 7:40 AM EST Office Visit [facility] [address] [facility] [address] [place] [phone] Ellie Larios NP 300 [facility] [address] [place] [phone] 05/31/2025 2:30 PM EST Office Visit Pulmonolgy - [place] 175 [facility] [address] [place] [phone] Norma Santa MD [address] [place] [phone] Health Maintenance Due Date Last Done Comments IPV Vaccines (3 of 3 - Adult catch-up series) 12/29/1989 07/01/1989, 04/15/1964 Medicare Annual Wellness Visit 04/24/2022 Depression Screening 05/16/2024 04/13/2024, 10/11/19 24 Influenza Vaccine (#1) 2025 , 03/19/2023, 03/19/2023, Additional history exists Social Influencers of Health Screening 04/13/2025 04/13/2024 Falls Risk Assessment 04/17/2025 04/17/2024, 023 Hypertension/CHF/CAD Annual BMP Blood Test 10/17/2025 10/17/2024, 10/11/2023, 10/11/2023 DTaP,Tdap,and Td Vaccines (5 - Td or Tdap) 11/03/2028 11/03/2018, 11/28/2008, 05/23/1999, Additional history exists Cholesterol Screening (Lipid Panel) 10/17/2029 10/17/2024, 10/11/2023, 10/11/2023 Meningococcal ACWY Vaccine Aged Out 08/23/1999 N o longer eligible based on patient's age to complete this topic Hepatitis A Vaccines Aged Out 09/19/1999, 03/21/19 99 No longer eligible based on patient's age to complete this topic Pneumococcal Vaccine: 50+ Years Completed 09/16/2014, 07/19/2012 Hepatitis C Screening Completed 09/30/2014 Zoster Vaccines Completed 02/10/2019, 06/2018, 06/05/2010 RSV Immunization Adult Patients Completed 02/27/2023 COVID-19 Vaccine Completed 08/18/2024, 07/2023, 07/29/2023, Additional history exists HIB Vaccines Aged Out [...] age to complete this topic Meningococcal B Vaccine Aged Out No l onger eligible based on patient's age to complete this topic RSV Immunization Patients Under 20 months Aged Out No longer eligible based on patient's age to complete this topic Varicella Vaccines Aged Out No longer eligible based on patient's age to complete this topic Procedures Procedure Name Priority Date/Time Associated Diagnosis Comments PULMONARY FUNCTION TESTING Routine 10/29/2024 9:29 AM EDT Dyspnea, unspecified type Mixed sleep apnea Upper respiratory tract infection, unspecified type Lung nodules Abnormal chest CT Ex-smoker CBC WITH AUTO DIFFERENTIAL Routine 10/17/2024 3:55 PM EDT Cardiomyopathy, unspecified type (CMS/HCC V24, CMS/HCC V28) Atrial fibrillation, unspecified type (CMS/HCC V24, CMS/HCC V28) Central sleep apnea with Usman-Burton respiration Asthma, unspecified asthma severity, unspecified whether complicated, unspecified whether persistent Hyperlipidemia, unspecified hyperlipidemia type Mitral valve insufficiency, unspecified etiology Benign essential hypertension 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, CMS/HCC V28) Sick sinus syndrome (CMS/HCC V24, CMS/HCC V28) LIPID PANEL WITH REFLEX TO DIRECT LDL Routine 10/17/2024 3:55 PM EDT Cardiomyopathy, unspecified type (CMS/HCC V24, CMS/HCC V28) Atrial fibrillation, unspecified type (CMS/HCC V24, CMS/HCC V28) Central sleep apnea with Usman-Burton respiration Asthma, unspecified asthma severity, unspecified whether complicated, unspecified whether persistent Hyperlipidemia, unspecified hyperlipidemia type Mitral valve insufficiency, unspecified etiology Benign essential hypertension 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, CMS/HCC V28) Sick sinus syndrome (CMS/HCC V24, CMS/HCC V28) COMPREHENSIVE METABOLIC PANEL Routine 10/17/2024 3:55 PM EDT Cardiomyopathy, unspecified type (CMS/HCC V24, CMS/HCC V28) Atrial fibrillation, unspecified type (CMS/HCC V24, CMS/HCC V28) Central sleep apnea with Usman-Burton respiration Asthma, unspecified asthma severity, unspecified whether complicated, unspecified whether persistent Hyperlipidemia, unspecified hyperlipidemia type Mitral valve insufficiency, unspecified etiology Benign essential hypertension 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, CMS/HCC V28) Sick sinus syndrome (CMS/HCC V24, CMS/HCC V28) THYROID STIMULATING HORMONE WITH REFLEX TO FREE T4 AND FREE T3 Routine 10/17/2024 3:55 PM EDT Cardiomyopathy, unspecified type (CMS/HCC V24, CMS/HCC V28) Atrial fibrillation, unspecified type (CMS/HCC V24, CMS/HCC V28) Central sleep apnea with Usman-Burton respiration Asthma, unspecified asthma severity, unspecified whether complicated, unspecified whether persistent Hyperlipidemia, unspecified hyperlipidemia type Mitral valve insufficiency, unspecified etiology Benign essential hypertension 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, CMS/HCC V28) Sick sinus syndrome (CMS/HCC V24, CMS/HCC V28) CBC AND DIFFERENTIAL Routine 10/17/2024 3:55 PM EDT Cardiomyopathy, unspecified type (CMS/HCC V24, CMS/HCC V28) Atrial fibrillation, unspecified type (CMS/HCC V24, CMS/HCC V28) Central sleep apnea with Usman-Burton respiration Asthma, unspecified asthma severity, unspecified whether complicated, unspecified whether persistent Hyperlipidemia, unspecified hyperlipidemia type Mitral valve insufficiency, unspecified etiology Benign essential hypertension 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, CMS/HCC V28) Sick sinus syndrome (CMS/HCC V24, CMS/HCC V28) PROSTATE SPECIFIC ANTIGEN DIAGNOSTIC Routine 10/17/2024 3:55 PM EDT Cardiomyopathy, unspecified type (CMS/HCC V24, CMS/HCC V28) Atrial fibrillation, unspecified type (CMS/HCC V24, CMS/HCC V28) Central sleep apnea with Usman-Burton respiration Asthma, unspecified asthma severity, unspecified whether complicated, unspecified whether persistent Hyperlipidemia, unspecified hyperlipidemia type Mitral valve insufficiency, unspecified etiology Benign essential hypertension 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, CMS/HCC V28) Sick sinus syndrome (CMS/HCC V24, CMS/HCC V28) POLYSOMNOGRAPHY Routine 10/16/2024 4:31 PM EDT Mixed sleep apnea DEPRESSION SCREENING Routine 10/11/2023 FALLS RISK ASSESSMENT Routine 04/12/2023 HEPATITIS C SCREENING Routine 09/30/2014 from Last 3 Months or Most Recently Relevant to Health Maintenance Results * Pulmonary function testing: Spirometry with Bronchodilator, Carbon Monoxide Diffusing Capacity, Vital Capacity Test, Nitrogen Wash Out (10/29/2024 9:29 AM EDT) Impressions Abisai Thompson MD - 10/29/2024 9:29 AM EDT 10/29/2024 FEV1 is 77% normal, FVC 62% normal, FEV1/FVC ratio is normal, No bronchodilators was done on this exam Lung volume TLC is 82% normal, RV/TLC is 116% normal Diffusion DLCO is 75% normal, DLCO/VA is 106% In summary this PFT is consistent with mild restrictive lung disease given the decline in the FEV1 and TLC Norma Santa MD PFT ORDERABLES Final Result * Thyroid stimulating hormone with reflex to free t4 and free t3 (10/17/2024 3:55 PM EDT) [facility] TSH 3.85 0.40 - 4.00 mcIU/mL LAB CHEMISTRY METHOD 10/17/2024 7:54 PM EDT [facility] Blood Venous blood specimen / Unknown Venipuncture / Unknown 10/17/2024 3:55 PM EDT 10/17/2024 3:55 PM EDT Fernando SANTOS LAB BLOOD ORDERABLES Lis l Result [facility] [address] [place] [address], [place] [phone] * (ABNORMAL) Lipid panel with reflex to direct LDL (10/17/2024 3:55 PM EDT) [facility] Cholesterol 190 0 - 200 mg/dL LAB CHEMISTRY METHOD 10/17/2024 6:20 PM EDT [facility] Triglycerides 77 0 - 150 mg/dL LAB CHEMISTRY METHOD 10/17/2024 6:20 PM EDT [facility] HDL 73 >=40 mg/dL LAB CHEMISTRY METHOD 10/17/2024 6:20 PM EDT [facility] LDL Calculated 102(H) 0 - 100 mg/dL LAB CHEMISTRY METHOD 10/17/2024 6:20 PM EDT [facility] VLDL Cholesterol Trever 15.4 mg/dL LAB CHEMISTRY METHOD 10/17/2024 6:20 PM EDT [facility] Non HDL Chol. (LDL+VLDL) 117 <145 mg/dL LAB CHEMISTRY METHOD 10/17/2024 6:20 PM EDT [facility] Chol/HDL Ratio 2.6 0.0 - 4.4 LAB CHEMISTRY METHOD 10/17/2024 6:20 PM EDT [facility] Blood Venous blood specimen / Unknown Venipuncture / Unknown 10/17/2024 3:55 PM EDT 10/17/2024 3:55 PM EDT [facility] LAB BLOOD ORDERABLES Lis l Result [facility] [address] [place] [address], * Prostate specific antigen diagnostic (10/17/2024 3:55 PM EDT) PSA 0.80 0.00 - 4.00 ng/mL LAB CHEMISTRY METHOD 10/17/2024 7:01 PM EDT [facility] Blood Venous blood specimen / Unknown Venipuncture / Unknown 10/17/2024 3:55 PM EDT 10/17/2024 3:55 PM EDT Narrative [facility] - 10/17/2024 7:01 PM EDT The Siemens Advia Centaur Chemiluminescent Immunoassay is used. Results obtained with different assay methods or kits cannot be used interchangeably. Results cannot be interpreted as absolute evidence of the presence or absence of malignant disease. [facility] LAB BLOOD ORDERABLES Lis l Result [facility] [address] [place] [address], * (ABNORMAL) CBC auto differential (10/17/2024 3:55 PM EDT) WBC 6.9 4.8 - 10.8 K/mcL LAB HEMETOLOGY METHOD 10/17/2024 6:10 PM EDT [facility] RBC 4.00(L) 4.50 - 5.50 M/mcL LAB HEMETOLOGY METHOD 10/17/2024 6:10 PM EDT [facility] Hemoglobin 13.4(L) 13.5 - 17.5 g/dL LAB HEMETOLOGY METHOD 10/17[facility]2024 [facility] Hematocrit 41.0(L) 42.0 - 54.0 % LAB HEMETOLOGY METHOD 10/17/2024 6:10 PM EDT [facility] MCV 103.8(H) 79.0 - 98.0 FL LAB HEMETOLOGY METHOD 10/17/2024 6:10 PM [facility] MCH 33.9(H) 27.0 - 32.0 pcg LAB HEMETOLOGY METHOD 10/17/2024 6:10 PM [facility] MCHC 32.7 32.0 - 37.0 g/dL LAB HEMETOLOGY METHOD 10/17/2024 6:10 PM [facility] RDW 13.2 11.0 - 15.0 % LAB HEMETOLOGY METHOD 10/17/2024 6:10 PM EDT [facility] Platelets 199 130 - 400 K/mcL LAB HEMETOLOGY METHOD 10/17/2024 6:10 PM EDT [facility] MPV 10.1 7.0 - 11.0 FL LAB HEMETOLOGY METHOD 10/17/2024 6:10 PM EDT [facility] NRBC 0.0 <1.0 % LAB HEMETOLOGY METHOD 10/17/2024 6:10 PM EDT [facility] NRBC Absolute 0.00 <0.10 K/mcL LAB HEMETOLOGY METHOD 10/17/2024 6:10 PM EDT [facility] Neutrophils Relative 74.1 % LAB HEMETOLOGY METHOD 10/17/2024 6:10 PM EDT [facility] Lymphocytes Relative 12.7 % LAB HEMETOLOGY METHOD 10/17/2024 6:10 PM EDT [facility] Monocytes Relative 8.8 % LAB HEMETOLOGY METHOD 10/17/2024 6:10 PM [facility] Eosinophils Relative 3.1 % LAB HEMETOLOGY METHOD 10/17/2024 6:[facility] Basophils Relative 0.9 % LAB HEMETOLOGY METHOD 10/17/2024 6:10 PM [facility] Immature Granulocytes Relative 0.4 % LAB HEMETOLOGY METHOD 10/17/2024 6:10 PM [facility] Neutrophils Absolute 5.08 1.50 - 7.00 K/mcL LAB HEMETOLOGY METHOD 10/17/2024 6:10 PM [facility] Lymphocytes Absolute 0.87(L) 1.00 - 5.00 K/mcL LAB HEMETOLOGY METHOD 10/17/2024 6:10 PM [facility] Monocytes Absolute 0.60 0.20 - 1.00 K/mcL LAB HEMETOLOGY METHOD 10/17/2024 6:10 PM [facility] Eosinophils Absolute 0.21 0.00 - 0.50 K/mcL LAB HEMETOLOGY METHOD 10/17/2024 6:10 PM [facility] Basophils Absolute 0.06 0.00 - 0.20 K/mcL LAB HEMETOLOGY METHOD 10/17/2024 6:10 PM [facility] Immature Granulocytes Absolute 0.03 0.00 - 0.03 K/mcL LAB HEMETOLOGY METHOD 10/17/2024 6:10 PM [facility] Blood Venous blood specimen / Unknown Venipuncture / Unknown 10/17/2024 3:55 PM EDT 10/17/2024 3:55 PM EDT us Fernando SANTOS LAB BLOOD ORDERABLES Lis l Result [facility] [address] [place] [address], * (ABNORMAL) Comprehensive metabolic panel (10/17/2024 3:55 PM EDT) Sodium 135 133 - 145 mmol/L LAB CHEMISTRY METHOD 10/17/2024 6:26 PM EDT [facility] Potassium 4.4 3.5 - 5.5 mmol/L LAB CHEMISTRY METHOD 10/17/2024 6:26 PM [facility] Chloride 103 96 - 110 mmol/L LAB CHEMISTRY METHOD 10/17/2024 6:26 PM [facility] CO2 30 21 - 32 mmol/L LAB CHEMISTRY METHOD 10/17/2024 6:26 PM [facility] Anion Gap 2(L) 3 - 11 LAB CHEMISTRY METHOD 10/17/2024 6:26 PM [facility] Glucose 125(H) 70 - 100 mg/dL LAB CHEMISTRY METHOD 10/17/2024 6:26 PM [facility] BUN 33(H) 5 - 25 mg/dL LAB CHEMISTRY METHOD 10/17/2024 6:26 PM [facility] Creatinine 1.20 0.70 - 1.30 mg/dL LAB CHEMISTRY METHOD 10/17/2024 6:26 PM [facility] eGFR 62 >=60 mL/min/1. 73m2 LAB CHEMISTRY METHOD 10/17/2024 6:26 PM [facility] Comment:Calculation based on the Chronic Kidney Disease Epidemiology Collaboration (CKD-EPI) equation refit without adjustment for race. BUN/Creatinine Ratio 27.5 LAB CHEMISTRY METHOD 10/17/2024 6:26 PM [facility] Calcium 9.5 8.5 - 10.5 mg/dL LAB CHEMISTRY METHOD 10/17/2024 6:26 PM EDT [facility] AST (SGOT) 46(H) 10 - 42 unit/L LAB CHEMISTRY METHOD 10/17/2024 6:26 PM EDT [facility] ALT (SGPT) 47 10 - 60 unit/L LAB CHEMISTRY METHOD 10/17/2024 6:26 PM EDT [facility] Alkaline Phosphatase 92 42 - 121 unit/L LAB CHEMISTRY METHOD 10/17/2024 6:26 PM EDT [facility] Total Protein 7.1 6.0 - 8.0 g/dL LAB CHEMISTRY METHOD 10/17/2024 6:26 PM EDT [facility] Albumin 4.0 3.2 - 5.0 g/dL LAB CHEMISTRY METHOD 10/17/2024 6:26 PM EDT [facility] Total Bilirubin 0.6 0.0 - 1.4 mg/dL LAB CHEMISTRY METHOD 10/17/2024 6:26 PM EDT [facility] Blood Venous blood specimen / Unknown Venipuncture / Unknown 10/17/2024 3:55 PM EDT 10/17/2024 3:55 PM EDT Fernando SANTOS LAB BLOOD ORDERABLES Lis l Result [facility] [address] [place] [address], * Polysomnography (10/16/2024 4:31 PM EDT) Norma Santa MD [facility] ORDERABLES Final Re sult * Depression Screening (10/11/2023) [facility] Depression Screening abstracted Historical Provider HEALTH MAINTENANCE Final Result * Falls Risk Assessment (04/12/2023) Falls Risk Assessment abstracted Historical Provider HEALTH MAINTENANCE Final Result * Hepatitis C Screening (09/30/2014) [facility] Hepatitis C Screening abstracted us Historical Provider HEALTH MAINTENANCE Final Result from Last 3 Months or Most Recently Relevant to Health Maintenance Insurance MEDICARE [facility] [place] [address] Care Teams Steel Barrel Reamer Relationship Specialty Start Date End Date Fernando Lees PA [address] [place] [phone] PCP - General Internal Medicine 09/10/20
--- OUTSIDE RECORDS SUMMARY | 2025-01-16 11:41 | XMS_ITS | Clinical Summary ---
Author Organization [facility] Address [address] [place] [address] [place] [address] Phone Care Team Providers Care Senior Project Coordinator Name Role Phone Shane Abdi MD Primary Care Provider U navailable Self-Referred, Patient Unavailable Unavailab le Allergies No known active allergies Medications warfarin (COUMADIN) 5 MG tablet Take 5 mg by mouth daily. Active omega-3 fatty acids-vitamin E 1,000 mg Cap Take 1 capsule by mouth daily. Active budesonide (PULMICORT FLEXHALER) 90 mcg/actuation inhaler Inhale 2 puffs into the lungs 2 (two) times a day. Active fluticasone propionate (FLONASE) 50 mcg/actuation nasal spray 1 spray by Nasal route daily as needed. Active MULTIVITAMIN ORAL Take 1 tablet by mouth daily. Active lisinopril (PRINIVIL,ZESTR IL) 20 MG tablet Take 20 mg by mouth daily. 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 Not on caio e 09/18/2022 Are you concerned about learning? Not on file 09/18/2022 No 09/18/2022 No 09/18/2022 Digital Access Answer Date Recorded No 10/08/2022 No 10/08/2022 No 10/08/2022 Reliable internet access at home? Not on file 10/08/2022 Device with a working camera? Not on file Sex and Gender Information Value Date Recorded Sex Assigned at Not on file Legal Sex Male 5:33 PM EST Gender Identity Not on file Sexual Orientation Not on file Last Filed Vital Signs Vital Sign Reading Time Taken Comments Blood Pressure 121/75 02/04/2016 12:35 PM EDT Pulse 39 02/04/2016 12:35 PM EDT Temperature 36.5 C (97.7 F) 02/04/2016 12:35 PM EDT Respiratory Rate 18 02/04/2016 12:35 PM EDT Oxygen Saturation - - Inhaled Oxygen Concentration - - Weight 78.2 kg (172 lb 6.4 oz) 02/04/2016 12:35 PM EDT dfci Height 182.3 cm (5' 11.77 ) 02/04/2016 12:35 PM EDT dfci Body Mass Index 23.53 02/04/2016 12:35 PM EDT Plan of Treatment Health Maintenance Due Date Last Done Comments CREATININE LEVEL 1945 LIPID PANEL 1945 POTASSIUM LEVEL 1945 DEPRESSION SCREENING 1957 SMOKING Hx and SMOKELESS TOBACCO SCREENING 1958 HEPATITIS C SCREENING 12/08/1963 RSV VACCINE (1 - 1-dose 75+ series) 2020 COVID-19 VACCINE (3 - 2023-2 5 season) 2024 07/22/2020, 07/01/2020 Adult Td,Tdap Booster 11/03/2028 11/03/2018 , 11/28/2008 PNEUMOCOCCAL VACCINES (50+ years) Completed 09/16/2014, 07/19/2012 ZOSTER VACCINES Completed 02/10/2019, 11/14/2018, 06/05/2010 HEPATITIS A VACCINES Aged Out No long er eligible based on patient's age to complete this topic HIB VACCINES Aged Out No longer eligi ble based on patient's age to complete this topic MENINGOCOCCAL VACCINES (ACWY) Aged Out No longer eligible based on patient's age to complete this topic MENINGOCOCCAL VACCINES (B) Aged Out N o longer eligible based on patient's age to complete this topic Medical Devices Not on file Insurance MEDICARE PART A & B [facility] MEDICARE SUPPLEMENT [facility] [place] [place] Address: [facility] [address] [place] [address] [facility] TOTAL CHOICE INDEMNITY [employer] Address: [place] [address] [place] [address] MEDICARE PART A & B FOR [facility] MEDICARE SUPPLEMENT [facility] [place] [place] Address: [address] [address] [facility] TOTAL CHOICE INDEMNITY MEDICARE PART A & B FOR LIFE MEDICARE SUPPLEMENT [facility] [place] [place] Address: [address] [place] [address] [facility] TOTAL CHOICE INDEMNITY MEDICARE PART A & B FOR LIFE MEDICARE SUPPLEMENT [facility] [place] [place] Address: [address] [place] [address] [facility] [place] [place] [address] MEDICARE PART A & B [facility] MEDICARE SUPPLEMENT [facility] [place] [place] Address: [facility] [address] [place] [address] [facility] [place] [place] [address] MEDICARE PART A & B [facility] MEDICARE SUPPLEMENT [facility] [place] [place] Address: [address] [place] [address] [facility] TOTAL CHOICE INDEMNITY MEDICARE PART A & B FOR LIFE MEDICARE SUPPLEMENT [facility] TOTAL CHOICE INDEMNITY MEDICARE PART A & B FOR LIFE MEDICARE SUPPLEMENT [facility] TOTAL CHOICE INDEMNITY MEDICARE PART A & B [facility] MEDICARE SUPPLEMENT [facility] [place] [place] Address: [address] [address] [facility] TOTAL CHOICE INDEMNITY Care Teams Senior Project Coordinator Relationship Specialty Start Date End Date Shane Abdi MD PCP - General Internal Medicine 01/15/16 Self-Referred, Patient Referring Physician 01/15/16 Additional Source Comments The information contained in this document represents components of the legal health record. It is not the complete legal health record.[facility]
--- OUTSIDE RECORDS SUMMARY | 2025-01-16 11:41 | XMS_ITS | Clinical Summary ---
Author Organization [facility] Address [address] [place] [address] Care Team Providers Care Extension Forester Name Role Phone Unavailable Primary Care Provider [...] - 1-dose 75+ series) 2020 COVID-19 Vaccine (1 - 2023-2 5 season) 2025 Influenza (#1) 2025 HPV Vaccine (No Doses Required) Completed Hep A Aged Out No longer eligi [...] complete this topic Zoster (Zostavax) Discontinued Insurance [facility]CTIVE [facility]
--- OUTSIDE RECORDS SUMMARY | 2025-01-16 11:41 | XMS_ITS | Encounter Summary ---
Author Organization [facility] Address [address] [place] [address] Care Team Providers Care Choir Leader Name Role Phone Fernando Lees Primary Care Provider [phone] Reason for Visit * Reason Onset Date Comments Medication Problem 01/07/2025 Encounter Details Date Type Department Care Team ([facility] st Contact Info) Description 01/07/2025 Telephone [facility] [address] [facility] [address] [place] [address] Norma Santa MD [address] [place] [phone] Social History Tobacco Use Types Packs/Day Years [...] as of this encounter Progress Notes * Kaylee Martins MA - 01/08/2025 9:26 AM EDT Please send alternative * Halima Ventura - 01/07/2025 10:42 AM EDT Pharmacy fax received requesting alternative for Fluticasone Furo Ellipta 200 mcg. Medication not covered, preferred alternative Arnuity Ellipta documented in this encounter Plan of Treatment Upcoming Encounters Date Type Department Care Team (Late st Contact Info) Description 04/23/2025 1:00 PM EST Office Visit Adult Medicine [facility] [address] [place] [address] Fernando Lees PA [address] [place] [address] 05/01/2025 7:40 AM EST Office Visit [facility] [address] [facility] [address] [place] [phone] Ellie Larios NP [address] [facility] [address] [place] [phone] 05/31/2025 2:30 PM EST Office Visit Pulmonolgy - [place] [address] [facility] [address] [place] [phone] Norma Santa MD [address] [place] [address] documented as of this encounter Visit Diagnoses Not on filedocumented in this encounter Additional Health Concerns Assessment Noted Time PHQ-9 Depression Total Score: 0 04/13/20 24 11:23 PM EST documented as of this encounter Care Teams Choir Leader Relationship Specialty Start Date End Date Fernando Lees PA [address] [place] [address] PCP - General Internal Medicine 09/10/20 documented as of this encounter
--- OUTSIDE RECORDS SUMMARY | 2025-01-16 11:41 | XMS_ITS | Encounter Summary ---
Author Organization [facility] Address [address] [place] [address] Care Team Providers Care Assistant Designer Name Role Phone Fernando Lees Primary Care Provider [phone] Reason for Visit * Reason Onset Date Comments Prior Authorization Needed 12/31/2024 Encounter Details Date Type Department Care Team ([facility] st Contact Info) Description 12/31/2024 Telephone [facility] [address] [facility] [address] [place] [address] Norma Santa MD [address] [place] [address] Social History Tobacco Use Types Packs/Day Years [...] care for your loved ones. For example, school childcare attendant or elderly care for an older adult? [...] Progress Notes * Kaylee Martins MA - 01/01/2025 8:59 AM EDT Left vm to informed changes on his inhaler * Rubi Montgomery - 12/31/2024 2:31 PM EDT Fax received from [facility], prior authorization needed for Plumicort 180MCG, patients insurance does not cover this medication, does cover arnuity ellipta inh 200MCG. Paperwork attached to encounter. GERMANIA: 10/29/2024 NOV: 05/31/2025 documented in this encounter Plan of Treatment Upcoming Encounters Date Type Department Care Team (Late st Contact Info) Description 04/23/2025 1:00 PM EST Office Visit Adult Medicine [facility] [address] [place] [address] Fernando Lees PA [address] [place] [address] 05/01/2025 7:40 AM EST Office Visit [facility] [address] [facility] [address] [place] [phone] Ellie Larios PANTOGRAPH WATCHER [address] [facility] [address] [place] [address] 05/31/2025 2:30 PM EST Office Visit Pul[facility]olgy - [place] [address] [facility] [address] [place] [phone] Norma Santa MD [address] [place] [address] documented as of this encounter Visit Diagnoses Not on filedocumented in this encounter Additional Health Concerns Assessment Noted Time PHQ-9 Depression Total Score: 0 04/13/20 24 11:23 PM EST documented as of this encounter Care Teams Assistant Designer Relationship Specialty Start Date End Date Fernando Lees PA [address] [place] [address] PCP - General Internal Medicine 09/10/20 documented as of this encounter
--- OUTSIDE RECORDS SUMMARY | 2025-01-16 11:41 | XMS_ITS ---
Author Name [facility] Organization Unknown Care Team Organization Name Specialty Phone Email Start Date End Da te [facility] 01/02/2025 [facility] Fernando Lees Primary Care 10/22/2022
== END 2025-01-16 10:27 | disposition home or self-care (01) ==
LOC: HO.HMGAL 10:12
PROVIDERS: PCP Physician Assistant Medical; Visit Provider Registered Nurse Emergency
DX: J30.89 Other allergic rhinitis (principal)
CPT/HCPCS: 95117; 95165

== ENCOUNTER 2025-03-11 11:45 | Outpatient (AMB) | payer MEDICARE, OTHER, SELFPAY ==
--- OUTSIDE RECORDS SUMMARY | 2025-03-11 15:10 | XMS_ITS | Clinical Summary ---
Author Organization [facility] Address [address] [place] [address] [place] [phone] Phone Care Team Providers Care Auto Service Mechanic Name Role Phone Shane Abdi MD Primary [...] VACCINE (1 - 1-dose 75+ series) 2020 INFLUENZA VACCINE (#1) 2024 , 03/12/2019, 03/03/2018, Additional history exists COVID-19 VACCINE ( season) 2025 07/22/2020, 07/01/2020 Adult Td,Tdap Booster 11/03/2028 11/03/2018, 009 PNEUMOCOCCAL VACCINES (50+ years) Completed 09/16/2014, 07/19/2012 ZOSTER VACCINES Completed 02/10/2019, 070 06/2018, 06/05/2010 HEPATITIS A VACCINES Aged Out No [...] file Insurance MEDICARE PART A & B [employer] [facility] MEDICARE SUPPLEMENT [facility] TOTAL CHOICE INDEMNITY MEDICARE PART A & B [facility] MEDICARE SUPPLEMENT [facility] TOTAL CHOICE INDEMNITY MEDICARE PART A & B FOR LIFE MEDICARE SUPPLEMENT [facility] TOTAL CHOICE INDEMNITY MEDICARE PART A & B FOR LIFE MEDICARE SUPPLEMENT [facility] TOTAL CHOICE INDEMNITY MEDICARE PART A & B [facility] MEDICARE SUPPLEMENT [facility] TOTAL CHOICE INDEMNITY MEDICARE PART A & B [facility] MEDICARE SUPPLEMENT [facility] TOTAL CHOICE INDEMNITY MEDICARE PART A & B [facility] MEDICARE SUPPLEMENT [facility] TOTAL CHOICE INDEMNITY MEDICARE PART A & B FOR [facility] MEDICARE SUPPLEMENT [facility] TOTAL CHOICE INDEMNITY MEDICARE PART A & B FOR LIFE MEDICARE SUPPLEMENT [facility] TOTAL CHOICE INDEMNITY Care Teams Auto Service Mechanic Relationship Specialty Start Date End Date Shane Abdi MD PCP - General Internal Medicine 01/15/16 Self-Referred, Patient Referring Physician 01/15/16 Additional Source Comments The information contained in this document represents components of the legal health record. It is not the complete legal health record.[facility]
--- OUTSIDE RECORDS SUMMARY | 2025-03-11 15:10 | XMS_ITS ---
Author Organization [facility] Address [address] [place] [address] Phone Care Team Providers Care Research Laboratory Technician Name Role Phone Fernando Lees Primary Care Provider [phone] Active Problems Problem Noted Date Diagnosed Date Benign essential hypertension 04/05/2024 Chronic rhinitis 04/05/2024 Sensorineural hearing loss, bilateral 04/05/2024 Hyperlipidemia 11/25/2020 Overview (03/01/2024): Hyperlipidemia Mitral valve regurgitation 11/25/2020 Overview (03/01/2024): Mitral valve regurgitation Sick sinus syndrome (CMS/HCC V24, CMS/HCC V28) 0 11/25/2020 Overview (03/01/2024): Sick sinus syndrome Central sleep apnea with Usman-Burton respirati on 10/04/2018 Overview (03/01/2024): [facility] Home Sleep Apnea Test: Date 09/25/2018; Wt 175#; BMI 23; KELLEY 14, AI 6; HI 9; Unclassified apneas 0; Obstructive apneas 23; Central apneas 5; Mixed apneas 2; hypopneas 45; average oxygen saturation 94% (lowest 88% without saturations <88% for 5% or more of study) [facility] Polysomnogram treatment study. Date 11/04/2018. Wt 179#; [...] Malignant melanoma of skin o f trunk ([facility] V24, CMS/HCC V28) 02/05/2016 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, CMS/HCC V28) 02/05/2016 Allergy 06/05/2010 Cardiomyopathy ([facility]/HCC V24, CMS/HCC V28) 2008 Overview (03/01/2024): Mild [...] 01/26/2006 Geniculate herpes zoster 01/26/2006 Atrial fibrillation ([facility] V24, [facility] V28) 0 01/04/2006 Overview (03/01/2024): [...] well on the Eliquis Thyrotoxicosis 01/04/2006 Current Treatment and Therapy Plans No current plan information found. Past Treatment and Therapy Plans No past plan information found. Lifetime Dose Tracking * Chemical Lifetime Dose Automatic Entry Manual Entr y Fluoro Time 1 minutes 1 minutes 0 minutes Air Kerma 3.8 mGy 3.8 mGy 0 mGy CTDIvol 10.35 mGy 10.35 mGy 0 mGy Dose Area Product 0.5 mGy-cm2 0.5 mGy-cm2 0 mGy-cm2
--- OUTSIDE RECORDS SUMMARY | 2025-03-11 15:10 | XMS_ITS | Clinical Summary ---
Author Organization [facility] Address [address] [place] [address] Care Team Providers Care Rug Receiving Clerk Name Role Phone Unavailable Primary Care Provider [...] 75+ series) 2020 COVID-19 Vaccine (1 - 2024-2 6 season) 2025 Influenza (#1) 2025 HPV Vaccine [...] this topic Zoster (Zostavax) Discontinued Insurance INACTIVE [facility]
--- OUTSIDE RECORDS SUMMARY | 2025-03-11 15:10 | XMS_ITS | Clinical Summary ---
Author Organization [facility] Address [address] [place] [address] Phone Care Team Providers Care Net Sql Developer Name Role Phone Fernando Lees Primary Care Provider [phone] [phone] Allergies Active Allergy Reactions Criticality Noted Date [...] with Usman-Burton respirati on 10/04/2018 Overview (03/01/2024): [facility] Home Sleep Apnea Test: Date 09/25/2018; Wt 175#; BMI 23; KELLEY 14, AI 6; HI 9; Unclassified apneas 0; Obstructive apneas 23; Central apneas 5; Mixed apneas 2; hypopneas 45; average oxygen saturation 94% (lowest 88% without saturations <88% for 5% or more of study) [facility] Polysomnogram treatment study. Date 11/04/2018. Wt 179#; [...] 01/26/2006 Geniculate herpes zoster 01/26/2006 Atrial fibrillation ([facility] V24, [facility] V28) 0 01/04/2006 Overview (03/01/2024): Longstanding persistent [...] Type Department Care Team Description 01/07/2025 Telephone Pulmonology - [place] [address] [facility] [address] [place] [address] Norma Santa MD 12/31/2024 Telephone Pulmonology - [place] [address] [facility] [address] [place] [address] Norma Santa MD from Last 3 Months Immunizations Immunization Administration Dates Next Due Anthrax 10/17/1999,10/03/1999,09/19/1999 Hepatitis [...] subun it RSVpreF, 0.5mL, Preservative Free (Arexvy) 50yo and older 02/27/2023 Td Tetanus diptheria (Tdvax) [...] History Medical History Date Comments Atrial fibrillation ([facility] V24, [facility] V28) DX:Atrial fibrillation (HCC) Atrial fibrillation ([facility] V24, [facility] V28) 01/04/2006 DX:Atrial fibrillation (HCC) Thyrotoxicosis without [...] [address] parrish Cardiomyopathy ([facility] V24, [facility] V28) 02/06/2009 DX:Cardiomyopathy (HCC) Historical Medical DX 06/05/2010 DX:Allergy Malignant melanoma ([facility] V24, [facility] V28) 01/12/2016 DX:Malignant melanoma (HCC) Family History [...] care for your loved ones. For example, salesperson children's shoes or elderly care for an older adult? [...] Date Recorded What is your living situation? Unrecognized valu e 04/13/2024 Sex and Gender Information Value Date Recorded [...] 1:00 PM EST Office Visit Adult Medicine [address] [address] Fernando Lees PA [address] [place] [phone] 05/01/2025 7:40 AM EST Office Visit [facility] - [facility] [address] [facility] [address] [place] [phone] Ellie Larios NP [address] [place] [address] [address] [place] [address] 05/31/2025 2:30 PM EST Office Visit Pulmonology - [place] [address] [facility] [address] [place] [phone] Norma Santa MD [address] [place] [address] Health Maintenance Due Date Last Done Comments [...] Procedure Name Priority Date/Time Associated Diagnosis Comments COMPREHENSIVE METABOLIC PANEL Routine 10/17/2024 3:55 PM [...] Sick sinus syndrome (CMS/HCC V24, CMS/HCC V28) DEPRESSION SCREENING Routine 10/11/2023 FALLS RISK ASSESSMENT Routine 04/12/2023 HEPATITIS C SCREENING Routine 09/30/2014 from Last 3 Months or Most Recently Relevant to Health Maintenance Results * (ABNORMAL) Lipid panel with reflex to direct LDL (10/17/2024 3:55 PM EDT) [facility] Cholesterol 190 0 - 200 mg/dL LAB CHEMISTRY METHOD 10/17/2024 6:20 PM EDT [facility] Triglycerides 77 0 - 150 mg/dL LAB CHEMISTRY METHOD 10/17/2024 6:20 PM EDT [facility] HDL 73 >=40 mg/dL LAB CHEMISTRY METHOD 10/17/2024 6:20 PM EDT [facility] LDL Calculated 102(H) 0 - 100 mg/dL LAB CHEMISTRY METHOD 10/17/2024 6:20 PM EDT [facility] VLDL Cholesterol Trever 15.4 mg/dL LAB CHEMISTRY METHOD 10/17/2024 6:20 PM EDT [facility] Non HDL Chol. (LDL+VLDL) 117 <145 mg/dL LAB CHEMISTRY METHOD 10/17/2024 6:20 PM EDT [facility] Chol/HDL Ratio 2.6 0.0 - 4.4 LAB CHEMISTRY METHOD 10/17/2024 6:20 PM EDT [facility] Blood Venous blood specimen / Unknown Venipuncture / Unknown 10/17/2024 3:55 PM EDT 10/17/2024 3:55 PM EDT us Fernando SANTOS LAB BLOOD ORDERABLES Lis l Result [facility] [address] [place] [address], * (ABNORMAL) Comprehensive metabolic panel (10/17/2024 3:55 PM EDT) Sodium 135 133 - 145 mmol/L LAB CHEMISTRY METHOD 10/17/2024 6:26 PM [facility] Potassium 4.4 3.5 - 5.5 mmol/L LAB CHEMISTRY METHOD 10/17/2024 6:26 PM [facility] Chloride 103 96 - 110 mmol/L LAB CHEMISTRY METHOD 10/17/2024 6:26 PM [facility] CO2 30 21 - 32 mmol/L LAB CHEMISTRY METHOD 10/17/2024 6:26 PM [facility] Anion Gap 2(L) 3 - 11 LAB CHEMISTRY METHOD 10/17/2024 6:26 PM [facility] Glucose 125(H) 70 - 100 mg/dL LAB CHEMISTRY METHOD 10/17/2024 6:26 PM [facility] BUN 33(H) 5 - 25 mg/dL LAB CHEMISTRY METHOD 10/17/2024 6:26 PM [facility] Creatinine 1.20 0.70 - 1.30 mg/dL LAB CHEMISTRY METHOD 10/17/2024 6:26 PM [facility] eGFR 62 >=60 mL/min/1. 73m2 LAB CHEMISTRY METHOD 10/17/2024 6:26 PM [facility] Comment:Calculation based on the Chronic Kidney Disease Epidemiology Collaboration (CKD-EPI) equation refit without adjustment for race. BUN/Creatinine Ratio 27.5 LAB CHEMISTRY METHOD 10/17/2024 6:26 PM [facility] Calcium 9.5 8.5 - 10.5 mg/dL LAB CHEMISTRY METHOD 10/17/2024 6:26 PM [facility] AST (SGOT) 46(H) 10 - 42 unit/L LAB CHEMISTRY METHOD 10/17/2024 6:26 PM [facility] ALT (SGPT) 47 10 - 60 unit/L LAB CHEMISTRY METHOD 10/17/2024 6:26 PM [facility] Alkaline Phosphatase 92 42 - 121 unit/L LAB CHEMISTRY METHOD 10/17/2024 6:26 PM [facility] Total Protein 7.1 6.0 - 8.0 g/dL LAB CHEMISTRY METHOD 10/17/2024 6:26 PM [facility] Albumin 4.0 3.2 - 5.0 g/dL LAB CHEMISTRY METHOD 10/17/2024 6:26 PM [facility] Total Bilirubin 0.6 0.0 - 1.4 mg/dL LAB CHEMISTRY METHOD 10/17/2024 6:26 PM [facility] Blood Venous blood specimen / Unknown Venipuncture / Unknown 10/17/2024 3:55 PM EDT 10/17/2024 3:55 PM EDT us Fernando SANTOS LAB BLOOD ORDERABLES Lis l Result [facility] [place] [address] [place] [address], [place] [phone] * Depression Screening (10/11/2023) Depression Screening abstracted Historical Provider MD HEALTH MAINTENANCE Final Result * Falls Risk Assessment (04/12/2023) Falls Risk Assessment abstracted Historical Provider MD HEALTH MAINTENANCE Final Result * Hepatitis C Screening (09/30/2014) Hepatitis C Screening abstracted Historical Provider HEALTH MAINTENANCE Final Result from Last 3 Months or Most Recently Relevant to Health Maintenance Insurance MEDICARE [facility] Care Teams Net Sql Developer Relationship Specialty Start Date End Date Fernando Lees PA [address] [place] [address] PCP - General Internal Medicine 09/10/20
== END 2025-03-11 11:45 | disposition home or self-care (01) ==
LOC: HO.HMGAL 11:45
PROVIDERS: PCP Physician Assistant Medical; Visit Provider Registered Nurse Emergency
DX: J30.89 Other allergic rhinitis (principal)
CPT/HCPCS: 95117; 95165

== ENCOUNTER 2025-04-10 10:15 | Outpatient (AMB) | payer MEDICARE, OTHER, SELFPAY ==
--- OUTSIDE RECORDS SUMMARY | 2025-04-10 12:01 | XMS_ITS | Data Portability ---
Author Organization [place] - [facility], Allergy Address [address] [place] [phone] Care Team Providers Care Mercury Purifier Name Role Phone EDNA GOLDSMITH Primary Care Provider Assessment Encounter Date Assessment Date Assessment LastModified by Organization Details LastModified Time 11/06/2024 11/06/2024 78-year-old male with sensorineural loss and bilateral amplification presents for cerumen debridement. Cerumen impactions removed bilaterally. TMs and external auditory canals are normal to inspection. He has been followed by Dr. Guardado for cerumen and SCIT, and is considering transferring his care to our office. He will call to schedule repeat cerumen debridement, audiometric testing and allergy testing when convenient. [email or web address] Not available 11/06/2024 14:52:48 Plan of Treatment Reminders Order Date Submit Date Provider Last Modified By Organization Details Last Modified Time Details Appointments None record ed. Lab None record ed. Referral None record ed. Procedures None record ed. Surgeries None record ed. Imaging None record ed. Medication Orders None record ed. Patient TargetsNo targets recorded. Patient InstructionsNo instructions recorded. Reason for Referral None Reported. Problems Name Problem SNOMED Code Status Onset Date Resolution Date Notes Provider Name and Address Organization Details Recorded Time Impacted cerumen of bilatera l ears 65732278366 [id number] Active 2015 Impacted cerumen, bilatera l; Note: Date Diagnose d: 03/09/20 16 9:14 AM (H61.23) Not Available [facility] 4 02:24:19 Mixed conducti ve and sensorin eural hearing loss of left ear 13514971558 107 Active 2015 Mixed conducti ve and sensorin eural hearing loss, unilater al, left ear with restrict ed hearing on the contrala teral side; Note: Date Diagnose d: 03/09/20 16 9:42 AM (H90.A32 ) Not Available [facility] 4 02:24:12 Sensorin eural hearing loss in right ear 40717273163 100 Active 2015 Sensorin eural hearing loss, unilater al, right ear, with restrict ed hearing on the contrala teral side; Note: Date Diagnose d: 03/09/20 16 9:42 AM (H90.A21 ) Not Available [facility] 4 02:24:29 Sensorin eural hearing loss of bilatera l ears 376604799 Active 2015 Sensorin eural hearing loss, bilatera l; Note: Date Diagnose d: 03/09/20 16 9:19 AM (H90.3) Not Available [facility] 4 02:24:23 Candidal otitis externa 18196550 Active 2016 Candidal otitis externa; Note: Date Diagnose d: 7 11:00 AM (B37.84) Not Available [facility] 4 02:24:35 Lacerati on of right ear region 82034510255 409254 Completed 201812/16/2023 Lacerati on without foreign body of right ear, subseque nt encounte r; Note: Date Diagnose d: 9 2:43 PM (S01.311 D) Lacera tion with foreign body of right ear, initial encounte r; Note: Date Diagnose d: 9 7:00 PM (S01.321 A) ; Start Date : 10/25/19 19 Not [address] [facility] 4 02:24:19 Problem Notes None recorded. Procedures Surgical History Date Name Laterality Status Provider Name and Address Organization Details Recorded Time 5 Cerumen removal without microscope bilat completed MARLON HARDY PA-C [address] [place] [address], [phone], [facility] - [facility] 11/06/2024 14:51:57 Imaging Results None recorded. Procedure Notes None recorded. Medical Equipment None Reported. Medications Name Sig Start Date Stop Date Status Note LastModified by Organization Details LastModified Time ibuprofen 800 mg tablet TAKE 1 TABLET BY MOUTH EVERY 8 HOURS NEEDED FOR PAIN active Not Available Not Available No t Available Lotrisone 1 %-0.05 % topical cream 11/06 completed Medicati on ID: [id number] P elizabethbe d By Name: Monroe Haines nd Name: Lotrison e Send Method: E-Prescr ibed Sub s Allowed: subs OK Speci al Instruct ion: apply to external ear tid X 2 weeks Me dication GenericN sid: Lotrison e Not Available Not Available Not Available lisinopri l 20 mg tablet TAKE 1 TABLET BY MOUTH DAILY active Not Available Not Available No t Available peg-elect rolyte solution 420 gram oral solution 11/06 completed Medicati on ID: [id number] D uration Value: 1 Brand Name: peg-elec trolyte soln Sen d Method: E-Prescr ibed Sub s Allowed: subs OK Speci al Instruct ion: MIX ENTIRE BOTTLE AND DRINK 8 OUNCES BY MOUTH DIRECTED Medicat ionGener icName: peg-elec trolyte soln Not Available Not Available Not Available amoxicill in 500 mg tablet TAKE 1 TABLET BY MOUTH EVERY 6 HOURS UNTIL GONE 11/06 completed Not Available Not Available Not Available ofloxacin 0.3 % ear drops 5 drop 11/06 completed Medicati on ID: [id number] D uration Value: 7 Prescri bed By Name: GALILEO Eaton nd Name: ofloxaci n Send Method: E-Prescr ibed Sub s Allowed: subs OK Medic ationGen ericName : ofloxaci n Not Available Not Available Not Available amoxicill in 875 mg tablet TAKE 1 TABLET BY MOUTH TWICE DAILY FOR 10 DAYS 11/06 completed Not Available Not Available Not Available Coumadin 5 mg tablet 2015 active Medicati on ID: [id number] D uration Value: 90 Brand Name: Coumadin Send Method: E-Prescr ibed Sub s Allowed: No subs Med icationG enericNa me: Coumadin Not Available Not Available Not Available albuterol sulfate HFA 90 mcg/actua tion aerosol inhaler INHALE 2 PUFFS BY MOUTH EVERY 6 HOURS NEEDED FOR WHEEZING OR SHORTNES S OF BREATH active Not Available Not Available No t Available betametha sone valerate 0.12 % topical foam APPLY TO THE AFFECTED AREA ON THE SCALP EVERY DAY TO TWICE DAILY NEEDED active Not Available Not Available No t Available Pulmicort Flexhaler 180 mcg/actua tion breath activated INHALE 1 PUFF BY MOUTH TWICE DAILY. RINSE MOUTH WITH WATER AFTER USE FOR AFTERTAS TE AND INCIDENC E OF CANDIDIA SIS. DO NOT SWALLOW active Not Available Not Available No t Available GaviLyte- G 236 gram-22.7 4 gram-6.74 gram-5.86 gram oral solution TAKE 8 OUNCE BY MOUTH DIRECTED DRINK A GLASS EVERY 10-15 MINUTES 11/06 completed Not Available Not Available Not Available Eliquis 5 mg tablet TAKE 1 TABLET BY MOUTH TWICE DAILY active Not Available Not Available No t Available Vitals Date Recorded Body height Body mass index (BMI) Body weight Provider Name and Address Organization Details Last Updated DateTime 11/06/2024 185.42 cm 21.8 kg/m2 95718.74 g Magda Guillen [place] - [facility] 11/06/2024 14:05:14 Social History None recorded. Functional Status None recorded. Mental Status None recorded. Family History Nothing Reported. Medical History No medical history recorded. Past Encounters Encounter ID Performer Location Encounter Start Date Encounter Closed Date Diagnosis/Indication Diagnosis SNOMED-CT Code Diagnosis ICD10 Code Diagnosis IMO Codes Diagnosis Note [id number] MARLON HARDY PA-C [facility] [address] [phone] 11/06/2024 13:52:12 11/06/2024 14:32:38 Impacted cerumen of bilateral ears [id number] 437994 H61.23 Sensorineu ral hearing loss of bilateral ears 475418983 H90.3 Health Concerns Section Related Observation LastModified by Organization Detai ls LastModified Time None Recorded Concern Status LastModified by Organization Details LastModified Time None Recorded Advance Directives Directive None Recorded Payers Insurance Date Sequence Insurance Name Policy Number Policy Simpson Covered Member ID Simpson Member ID Guarantor Name 11/06/2024 1 [place]: [employer] Jimbo Larsen [id number] Jimbo Bautistaan 12/17/2024 3 FOR LIFE ( - MEDICARE SUPPLEMENT) Jimbo Larsen [id number] Jimbo Bautistaan 11/14/2024 2 [facility] INDEMNITY PLAN (INDEMNITY) [id number] Jimbo Bautistaan [id number] Jimbo Cruz Suzie Notes Date Note Type Note Provider Name and Address Organization Details Recorded Time 11/06/2024 text/html ROS as noted in the HPI 78-year-old male with sensorineural loss and bilateral amplification presents for cerumen debridement. He reports gradually worsening hearing despite amplification. He is followed by Dr. Guardado for environmental allergies, and is considering transferring his care to our office after Geo retires. Denies ear pain or drainage. HEBER JOSEPH MD [address] [place] [address], [phone], [facility] - [facility] 11/12/2024 07:47:45
--- OUTSIDE RECORDS SUMMARY | 2025-04-10 12:01 | XMS_ITS ---
Author Organization [facility] Address [address] [place] [address] Phone Care Team Providers Care Forensic Science Technician Name Role Phone Fernando Lees Primary Care Provider [phone] Active Problems Problem Noted Date Diagnosed Date Benign essential hypertension 04/05/2024 Chronic rhinitis 04/05/2024 Sensorineural hearing loss, bilateral 04/05/2024 Hyperlipidemia 11/25/2020 Overview (03/01/2024): Hyperlipidemia Mitral valve regurgitation 11/25/2020 Overview (03/01/2024): Mitral valve regurgitation Sick sinus syndrome (CMS/HCC V24, CMS/HCC V28) 0 11/25/2020 Overview (03/01/2024): Sick sinus syndrome Central sleep apnea with Usman-Burton respirati on 10/04/2018 Overview (03/01/2024): [facility] Home Sleep Apnea Test: Date 09/25/2018; Wt 175#; BMI 23; KELLEY 14, AI 6; HI 9; Unclassified apneas 0; Obstructive apneas 23; Central apneas 5; Mixed apneas 2; hypopneas 45; average oxygen saturation 94% (lowest 88% without saturations <88% for 5% or more of study) [facility] Polysomnogram treatment study. Date 11/04/2018. 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
--- OUTSIDE RECORDS SUMMARY | 2025-04-10 12:01 | XMS_ITS | Clinical Summary ---
Author Organization [facility] Address [address] [place] [address] Care Team Providers Care Refrigeration Lead Name Role Phone Unavailable Primary Care Provider [...] this topic Zoster (Zostavax) Discontinued Insurance INACTIVE [facility]
--- OUTSIDE RECORDS SUMMARY | 2025-04-10 12:01 | XMS_ITS | Clinical Summary ---
Author Organization [facility] Address [address] [place] [address] Phone Care Team Providers Care Bottom Ironer Name Role Phone Fernando Lees Primary Care Provider [phone] Allergies Active Allergy Reactions Criticality Noted Date [...] CPAP Historical (HISTORICAL CPAP) 10/07/19 22 Active multivit-minera ls/FA/lycopene (ONE-A-DAY MEN'S 50 PLUS ORAL) 1 tab qd Active budesonide (Pulmicort Flexhaler) 180 mcg/actuation inhalerIndicati ons:Moderate persistent asthma, unspecified whether complicated Inhale 1 puff by mouth 2 (two) times a day. Rinse mouth with water after use to reduce aftertaste and incidence of candidiasis. Do not swallow. 1 each 12 04/05/20 24 Active albuterol HFA (PROAIR HFA ; PROVENTIL HFA ; VENTOLIN HFA) 90 mcg/actuation inhalerIndicati ons:Moderate persistent asthma, unspecified whether complicated Inhale 2 puffs by mouth every 6 (six) hours if needed for wheezing or shortness of breath. 3 each 3 04/05/20 24 Active apixaban (Eliquis) 5 mg tablet TAKE 1 TABLET BY MOUTH TWICE DAILY 180 tablet 3 06/22/19 25 Active fluticasone furoate (Arnuity Ellipta) 200 mcg/actuation blister with device inhaler Inhale 1 puff by mouth 1 (one) time each day. 1 each 5 01/02/20 25 026 Active fluticasone furoate (Arnuity Ellipta) 100 mcg/actuation blister with device inhaler Inhale 1 puff by mouth 1 (one) time each day. 3 each 3 01/09/20 25 026 Active lisinopriL (PRINIVIL,ZESTR IL) 20 mg tablet TAKE 1 TABLET(20 MG) BY MOUTH 1 TIME EACH DAY 90 tablet 1 03/27/20 25 Active lisinopriL (PRINIVIL,ZESTR IL) 20 mg tablet TAKE 1 TABLET(20 MG) BY MOUTH 1 TIME EACH DAY 90 tablet 1 09/28/19 25 025 Discontinued Active Problems Problem Noted Date Diagnosed Date Benign essential hypertension 04/05/2024 Chronic rhinitis 04/05/2024 Sensorineural hearing loss, bilateral 04/05/2024 Hyperlipidemia 11/25/2020 Overview (03/01/2024): Hyperlipidemia Mitral valve regurgitation 11/25/2020 Overview (03/01/2024): Mitral valve regurgitation Sick sinus syndrome (CMS/HCC V24, CMS/HCC V28) 0 11/25/2020 Overview (03/01/2024): Sick sinus syndrome Central sleep apnea with Usman-Burton respirati on 10/04/2018 Overview (03/01/2024): [facility] Home Sleep Apnea Test: Date 09/25/2018; Wt 175#; BMI 23; KELLEY 14, AI 6; HI 9; Unclassified apneas 0; Obstructive apneas 23; Central apneas 5; Mixed apneas 2; hypopneas 45; average oxygen saturation 94% (lowest 88% without saturations <88% for 5% or more of study) [facility] Polysomnogram treatment study. Date 11/04/2018. Wt [...] Malignant melanoma of skin o f trunk ([facility] V24, CMS/HCC V28) 02/05/2016 Secondary malignant neoplasm of femoral lymph nodes ([facility]/HCC V24, CMS/HCC V28) 02/05/2016 Allergy 06/05/2010 Cardiomyopathy [...] 01/26/2006 Geniculate herpes zoster 01/26/2006 Atrial fibrillation ([facility] V24, [facility] V28) 0 01/04/2006 Overview (03/01/2024): Longstanding [...] reasonably well on the Eliquis Thyrotoxicosis 01/04/2006 Immunizations Immunization Administration Dates Next Due Anthrax [...] History Medical History Date Comments Atrial fibrillation ([facility] V24, [facility] V28) DX:Atrial fibrillation (HCC) Atrial fibrillation (CMS/HCC V24, CMS/[facility] V28) 01/04/2006 DX:Atrial fibrillation (HCC) Thyrotoxicosis [...] [address] parrish Cardiomyopathy ([facility] V24, [facility] V28) 02/06/2009 DX:Cardiomyopathy (HCC) Historical Medical DX 06/05/2010 DX:Allergy Malignant melanoma ([facility] V24, [facility] V28) 01/12/2016 DX:Malignant melanoma (HCC) Family History Medical History Relation Name Comments Heart failure Mother Colon cancer Uncle Relation Name Status Comments Brother suicide Father arthritis Mother (Age 87) congestive heart failure Uncle Social History Tobacco Use Types Packs/Day Years Used Date Smoking Tobacco: Former Cigarettes 0 Q uit: 12/14/1965 Smokeless Tobacco: Never Tobacco [...] for your loved ones. For example, child care lead teacher or elderly care for an older adult? [...] Information Value Date Recorded Sex Assigned at Male 03/25/2025 2:20 PM EST Legal Sex Male 6:24 AM EST Gender [...] 1:00 PM EST Office Visit [facility] [address] [phone] Fernando Lees PA [address] [place] [phone] 05/01/2025 7:40 AM EST Office Visit [facility] [address] [facility] [address] [place] [phone] Ellie Larios NP [address] [place] [address] [place] [address] 05/21/2025 11:[address] [facility] CT Scan [address] [place] [phone] 05/31/2025 2:30 PM EST Office Visit Pulmonology - [place] [address] [facility] [address] [place] [phone] Norma Santa MD [address] [place] [address] 09/30/2025 2:00 PM EDT Office Visit Endocrinology [address] [phone] Eunice Basilio PA [address] [place] [address] Health Maintenance Due Date Last Done Comments IPV Vaccines (3 of 3 - Adult catch-up series) 12/29/1989 07/01/1989, 04/15/1964 Medicare Annual Wellness Visit 04/24/2022 Depression Screening 05/16/2024 04/13/2024, 10/11/19 24 COVID-19 Vaccine ( season) 2025 08/18/2024, 01/17/2024, 07/29/2023, Additional history exists Influenza Vaccine (#1) 2025 , 03/19/2023, 03/19/2023, [...] Screening Completed 09/30/2014 Zoster Vaccines Completed 02/10/2019, 07/0 06/2018, 06/05/2010 RSV Immunization Adult Patients Completed 02/27/2023 HIB Vaccines Aged Out No longer eligi [...] to direct LDL (10/17/2024 3:55 PM EDT) [facility] Cholesterol 190 0 - 200 mg/dL LAB CHEMISTRY METHOD 10/17/2024 6:20 PM EDT [facility] Triglycerides 77 0 - 150 mg/dL LAB CHEMISTRY METHOD 10/17/2024 6:20 PM EDT [facility] HDL 73 >=40 mg/dL LAB CHEMISTRY METHOD 10/17/2024 6:20 PM EDT [facility] LDL Calculated 102(H) 0 - 100 mg/dL LAB CHEMISTRY METHOD 10/17/2024 6:20 PM EDT [facility] VLDL Cholesterol Trever 15.4 mg/dL LAB CHEMISTRY METHOD 10/17/2024 6:20 PM EDT [facility] Non HDL Chol. (LDL+VLDL) 117 <145 mg/dL LAB CHEMISTRY METHOD 10/17/2024 6:20 PM EDT [facility] Chol/HDL Ratio 2.6 0.0 - 4.4 LAB CHEMISTRY METHOD 10/17/2024 6:20 PM EDT [facility] Blood Venous blood specimen / Unknown Venipuncture / Unknown 10/17/2024 3:55 PM EDT 10/17/2024 3:55 PM EDT Fernando SANTOS LAB BLOOD ORDERABLES Lis lane Result [facility] [address] [place] [address], * (ABNORMAL) Comprehensive metabolic panel (10/17/2024 3:55 PM EDT) Sodium 135 133 - 145 mmol/L LAB CHEMISTRY METHOD 10/17/2024 6:26 PM EDT [facility] Potassium 4.4 3.5 - 5.5 mmol/L LAB CHEMISTRY METHOD 10/17/2024 6:26 PM T [facility] Chloride 103 96 - 110 mmol/L LAB CHEMISTRY METHOD 10/17/2024 6:26 PM EDT [facility] CO2 30 21 - 32 mmol/L LAB CHEMISTRY METHOD 10/17/2024 6:26 PM [facility] Anion Gap 2(L) 3 - 11 LAB CHEMISTRY METHOD 10/17/2024 6:26 PM [facility] Glucose 125(H) 70 - 100 mg/dL LAB CHEMISTRY METHOD 10/17/2024 6:26 PM [facility] BUN 33(H) 5 - 25 mg/dL LAB CHEMISTRY METHOD 10/17/2024 6:26 PM [facility] Creatinine 1.20 0.70 - 1.30 mg/dL LAB CHEMISTRY METHOD 10/17/2024 6:26 PM [facility] eGFR 62 >=60 mL/min/1. 73m2 LAB CHEMISTRY METHOD 10/17/2024 6:26 PM [facility] Comment:Calculation based on the Chronic Kidney Disease Epidemiology Collaboration (CKD-EPI) equation refit without adjustment for race. BUN/Creatinine Ratio 27.5 LAB CHEMISTRY METHOD 10/17/2024 6:26 PM [facility] Calcium 9.5 8.5 - 10.5 mg/dL LAB CHEMISTRY METHOD 10/17/2024 6:26 PM [facility] AST (SGOT) 46(H) 10 - 42 unit/L LAB CHEMISTRY METHOD 10/17/2024 6:26 PM [facility] ALT (SGPT) 47 10 - 60 unit/L LAB CHEMISTRY METHOD 10/17/2024 6:26 PM [facility] Alkaline Phosphatase 92 42 - 121 unit/L LAB CHEMISTRY METHOD 10/17/2024 6:26 PM [facility] Total Protein 7.1 6.0 - 8.0 g/dL LAB CHEMISTRY METHOD 10/17/2024 6:26 PM [facility] Albumin 4.0 3.2 - 5.0 g/dL LAB CHEMISTRY METHOD 10/17/2024 6:26 PM EDT [facility] Total Bilirubin 0.6 0.0 - 1.4 mg/dL LAB CHEMISTRY METHOD 10/17/2024 6:26 PM EDT [facility] Blood Venous blood specimen / Unknown Venipuncture / Unknown 10/17/2024 3:55 PM EDT 10/17/2024 3:55 PM EDT Fernando SANTOS LAB BLOOD ORDERABLES Lis l Result [facility] [address] [place] [address], [place] [phone] * Depression Screening (10/11/2023) Pathologist [facility] Depression Screening abstracted [facility] Provider MD HEALTH MAINTENANCE Final Result * Falls Risk Assessment (04/12/2023) Pathologist [facility] Falls Risk Assessment abstracted [facility] Provider MD HEALTH MAINTENANCE Final Result * Hepatitis C Screening (09/30/2014) Pathologist [facility] Hepatitis C Screening abstracted [facility] Provider MD HEALTH MAINTENANCE Final Result from Last 3 Months or Most Recently Relevant to Health Maintenance Insurance MEDIC[facility] Care Teams Bottom Ironer Relationship Specialty Start Date End Date Fernando Lees PA [address] [place] [address] PCP - General Internal Medicine 09/10/20
--- OUTSIDE RECORDS SUMMARY | 2025-04-10 12:01 | XMS_ITS | Clinical Summary ---
Author Organization [facility] Address [address] [place] [address] [place] [phone] Phone Care Team Providers Care Automation Tester Name Role Phone Shane Abdi MD Primary [...] on patient's age to complete this topic IPV VACCINES Aged Out No longer eligi ble based on patient's age to complete this topic MENINGOCOCCAL VACCINES (ACWY) Aged Out No longer eligible based on patient's age to complete this topic MENINGOCOCCAL VACCINES (B) Aged Out N o longer eligible based on patient's age to complete this topic Medical Devices Not on file Insurance ALDENANDREA JOSE [id number] MEDICARE PART A & B [facility] MEDICARE SUPPLEMENT [facility] TOTAL CHOICE INDEMNITY MEDICARE PART A & B [facility] MEDICARE SUPPLEMENT [facility] TOTAL CHOICE INDEMNITY MEDICARE PART A & B FOR LIFE MEDICARE SUPPLEMENT [facility] TOTAL CHOICE INDEMNITY MEDICARE PART A & B FOR LIFE MEDICARE SUPPLEMENT [facility] TOTAL CHOICE [place]DE[place] [id number] MEDICARE PART A & B [facility] MEDICARE [facility] [place] [id number] MEDICARE PART A & B [facility]IC[facility] [place] [id number] MEDICARE PART A & B [facility] MEDICARE SUPPLEMENT [facility] TOTAL CHOICE INDEMNITY MEDICARE PART A & B FOR LIFE MEDICARE SUPPLEMENT [facility] TOTAL CHOICE INDEMNITY MEDICARE PART A & B FOR LIFE MEDICARE SUPPLEMENT [facility] TOTAL CHOICE INDEMNITY Care Teams Automation Tester Relationship Specialty Start Date End Date Shane Abdi MD PCP - General Internal Medicine 01/15/16 Self-Referred, Patient Referring Physician 01/15/16 Additional Source Comments The information contained in this document represents components of the legal health record. It is not the complete legal health record.[facility]
== END 2025-04-10 10:15 | disposition home or self-care (01) ==
LOC: HO.HMGAL 10:15
PROVIDERS: PCP Physician Assistant Medical; Visit Provider Registered Nurse Emergency
DX: J30.89 Other allergic rhinitis (principal)
CPT/HCPCS: 95117; 95165